=== PATIENT | male | born 1945 | race Two or more races ===

== ENCOUNTER 2022-12-15 20:48 | Inpatient (IN) | payer OTHER, MEDICAID ==
[~2022-12-15] VITALS: Ht 167.6 cm; Wt 69.3 kg
[2022-12-15] MEDS ORDERED: ASPirin-EC 81 mg tab PO ONE (21:15)
[2022-12-15] MEDS ORDERED: NITROGLYCERIN 2% OINT 1GM PKG TD ONE (21:15)
[2022-12-15 21:23] LABS: Basophils # (auto) 0 10 ^3/uL (0-0.2); Basophils % (auto) 0.3 % (0.0-2.0); Eosinophils # (auto) 0 10 ^3/uL (0-0.8); Eosinophils % (auto) 0.7 % (0.0-7.0); Hematocrit 37.1 % (41.0-53.0); Hemoglobin 12.1 g/dL (13.5-17.5); Lymphocytes # (auto) 2.5 10 ^3/uL (0.4-5.4); Lymphocytes % (auto) 51.3 % (10.0-50.0); Mean Corpuscular Hemoglobin 32.5 pg (28.0-32.0); Mean Corpuscular Hgb Conc. 32.6 g/dL (32.0-36.0); Mean Corpuscular Volume 99.6 fL (80.0-100.0); Monocytes # (auto) 0.5 10 ^3/uL (0-1.3); Monocytes % (auto) 10.5 % (0.0-12.0); Neutrophils # (auto) 1.8 10 ^3/uL (1.6-8.6); Neutrophils % (auto) 37.2 % (37.0-80.0); Nucleated Red Blood Cells % 0.1 %; Red Blood Cells 3.72 10^6/uL (4.5-5.90); Red Cell Distribution Width 14.5 % (11.8-14.3); White Blood Cell 4.8 10^3/uL (4.4-10.8)
[2022-12-15] MEDS ORDERED: NITROGLYCERIN 0.4 MG SL TAB SL ONE (21:23)
[2022-12-15 21:39] LABS: Alanine Aminotransferase 39 U/L (7-40); Albumin 4.2 g/dL (3.2-4.8); Alkaline Phosphatase 104 U/L (46-116); Anion Gap 7 (5-15); Aspartate Aminotransferase 44 U/L (13-40); BUN/Creatinine Ratio 24.2 (10.0-20.0); Blood Urea Nitrogen 24 mg/dL (9-23); Calcium 9.3 mg/dL (8.7-10.4); Carbon Dioxide 23 mmol/L (20-30); Chloride 110 mmol/L (98-107); Glucose 102 mg/dL (74-106); INR 1.11 (0.9-1.15); Lipase 68 U/L (12-53); Magnesium 2.1 mg/dL (1.6-2.6); Partial Thromboplastin Time 27.3 SEC (24.5-34.5); Potassium 4.2 mmol/L (3.5-5.1); Prothrombin Time 11.6 sec (9.3-11.8); Sodium 140 mmol/L (136-145)
[2022-12-15 21:40] LABS: Bilirubin, Total 0.8 mg/dL (0.2-1.0); Total Protein 7.4 g/dL (5.7-8.2)
[2022-12-15 21:44] VITALS: PULSE 41; RESP 16; O2SAT 98
[2022-12-15] MEDS ORDERED: SODIUM CHLORIDE 0.9% 1,000 ML IV ONE (23:00)
[2022-12-15 23:41] LABS: Urine Bacteria NONE SEEN /hpf (None Seen); Urine Blood Negative /uL (Negative); Urine Clarity Clear (Clear); Urine Color Yellow (Yellow); Urine Hyaline Cast FEW /lpf (0 - 2); Urine Protein, UAD TRACE (Negative); Urine Specific Gravity 1.027 (1.001-1.035); Urine Urobilinogen Normal (Negative); Urine WBC <1 /hpf (0 - 3)
[2022-12-16] VITALS (10 sets, daily range): BP systolic 138–152; BP diastolic 41–47; PULSE 31–83; RESP 13–25; TEMP 98–98.7; O2SAT 92–97
[2022-12-16] MEDS ORDERED: ONDANSETRON HCL 4 MG/2 ML VIAL IV PRN (03:30)
[2022-12-16] MEDS ORDERED: HYDROcodone-ACET 5/325MG TAB PO PRN (03:30)
[2022-12-16] MEDS ORDERED: DOCUSATE SOD 100 MG CAP PO PRN (03:30)
[2022-12-16] MEDS ORDERED: IBUPROFEN 600 MG TAB PO PRN (03:30)
[2022-12-16] MEDS ORDERED: NITROGLYCERIN 0.4 MG SL TAB SL PRN (05:45)
[2022-12-16] MEDS ORDERED: MORPHINE SULFATE INJ 2 MG/ml SYRG IV PRN (05:45)
[2022-12-16] MEDS: SODIUM CHLOR 0.9% PF (SALINE LOCK) 10ML VIAL/SYR IV SCH ×3 (06:05→22:00)
[2022-12-16 07:40] LABS: Basophils # (auto) 0 10 ^3/uL (0-0.2); Basophils % (auto) 0.1 % (0.0-2.0); Eosinophils # (auto) 0 10 ^3/uL (0-0.8); Eosinophils % (auto) 0.4 % (0.0-7.0); Hematocrit 35.3 % (41.0-53.0); Hemoglobin 11.7 g/dL (13.5-17.5); Lymphocytes # (auto) 1.5 10 ^3/uL (0.4-5.4); Lymphocytes % (auto) 31.6 % (10.0-50.0); Mean Corpuscular Hemoglobin 32.9 pg (28.0-32.0); Mean Corpuscular Hgb Conc. 33.1 g/dL (32.0-36.0); Mean Corpuscular Volume 99.4 fL (80.0-100.0); Monocytes # (auto) 0.4 10 ^3/uL (0-1.3); Neutrophils # (auto) 2.7 10 ^3/uL (1.6-8.6); Neutrophils % (auto) 58.9 % (37.0-80.0); Red Blood Cells 3.56 10^6/uL (4.5-5.90); Red Cell Distribution Width 14.4 % (11.8-14.3); White Blood Cell 4.6 10^3/uL (4.4-10.8)
[2022-12-16 07:44] LABS: Alanine Aminotransferase 34 U/L (7-40); Albumin 3.8 g/dL (3.2-4.8); Alkaline Phosphatase 85 U/L (46-116); Anion Gap 7 (5-15); Aspartate Aminotransferase 35 U/L (13-40); BUN/Creatinine Ratio 24.7 (10.0-20.0); Bilirubin, Total 1.5 mg/dL (0.2-1.0); Blood Urea Nitrogen 19 mg/dL (9-23); Calcium 8.7 mg/dL (8.7-10.4); Carbon Dioxide 24 mmol/L (20-30); Chloride 109 mmol/L (98-107); Glucose 84 mg/dL (74-106); Sodium 140 mmol/L (136-145); Total Protein 6.7 g/dL (5.7-8.2)
[2022-12-16] MEDS: ASPirin 81 mg TAB PO SCH (09:36)
[2022-12-16] MEDS ORDERED: hydrALAZINE HCL 20 MG/ML VL IV PRN (09:45)
[2022-12-16] MEDS: LISINOPRIL 5 MG TAB PO SCH (10:12)
[2022-12-16] MEDS: amLODIPine BESYLATE 5 MG TAB PO SCH (10:13)
[2022-12-16 10:24] LABS: LDL Cholesterol 68 mg/dL (< 100); Triglycerides 61 mg/dL (< 150)
[2022-12-16 10:25] LABS: Cholesterol 119 mg/dL (< 200); HDL Cholesterol 39 mg/dL (40-59)
[2022-12-16] MEDS ORDERED: ATROPINE SULF 1 MG/10ml SYR IV PRN ×2 (14:15→16:45)
[2022-12-16] MEDS: ATORVASTATIN 20 MG TAB PO SCH (21:43)
[2022-12-17] VITALS (17 sets, daily range): BP systolic 136–176; BP diastolic 38–61; PULSE 28–46; RESP 12–19; TEMP 97.5–98.8; O2SAT 91–100
[2022-12-17 04:57] LABS: Basophils # (auto) 0 10 ^3/uL (0-0.2); Basophils % (auto) 0.2 % (0.0-2.0); Eosinophils # (auto) 0 10 ^3/uL (0-0.8); Eosinophils % (auto) 0.4 % (0.0-7.0); Hematocrit 35.9 % (41.0-53.0); Hemoglobin 12.2 g/dL (13.5-17.5); Lymphocytes # (auto) 1.2 10 ^3/uL (0.4-5.4); Lymphocytes % (auto) 23.1 % (10.0-50.0); Mean Corpuscular Hemoglobin 33.4 pg (28.0-32.0); Mean Corpuscular Hgb Conc. 33.9 g/dL (32.0-36.0); Mean Corpuscular Volume 98.6 fL (80.0-100.0); Monocytes # (auto) 0.5 10 ^3/uL (0-1.3); Monocytes % (auto) 9.8 % (0.0-12.0); Neutrophils # (auto) 3.5 10 ^3/uL (1.6-8.6); Neutrophils % (auto) 66.5 % (37.0-80.0); Red Blood Cells 3.64 10^6/uL (4.5-5.90); Red Cell Distribution Width 14.8 % (11.8-14.3); White Blood Cell 5.3 10^3/uL (4.4-10.8)
[2022-12-17 05:27] LABS: Alanine Aminotransferase 27 U/L (7-40); Albumin 3.9 g/dL (3.2-4.8); Alkaline Phosphatase 86 U/L (46-116); Anion Gap 7 (5-15); Aspartate Aminotransferase 27 U/L (13-40); BUN/Creatinine Ratio 16.3 (10.0-20.0); Bilirubin, Total 1.9 mg/dL (0.2-1.0); Blood Urea Nitrogen 13 mg/dL (9-23); Calcium 9.2 mg/dL (8.7-10.4); Carbon Dioxide 25 mmol/L (20-30); Chloride 107 mmol/L (98-107); Glucose 97 mg/dL (74-106); Potassium 3.9 mmol/L (3.5-5.1); Sodium 139 mmol/L (136-145); Total Protein 6.9 g/dL (5.7-8.2)
[2022-12-17] MEDS: SODIUM CHLOR 0.9% PF (SALINE LOCK) 10ML VIAL/SYR IV SCH ×3 (06:18→21:39)
[2022-12-17] MEDS ORDERED: ATOR20TA PO (07:14)
[2022-12-17] MEDS ORDERED: TAMS-35 PO (07:14)
[2022-12-17] MEDS ORDERED: AMLO1TAB22 PO (07:14)
[2022-12-17] MEDS ORDERED: FINA5TAB4 PO (07:15)
[2022-12-17] MEDS ORDERED: CYA100I PO (07:15)
[2022-12-17] MEDS ORDERED: CHOL20007 OR (07:15)
[2022-12-17] MEDS: ASPirin 81 mg TAB PO SCH (08:08)
[2022-12-17] MEDS: LISINOPRIL 5 MG TAB PO SCH ×2 (08:09→10:57)
[2022-12-17] MEDS: amLODIPine BESYLATE 5 MG TAB PO SCH (08:09)
[2022-12-17] MEDS ORDERED: ATROPINE SULF 1 MG/10ml SYR IV PRN ×2 (09:30→10:00)
[2022-12-17] MEDS: FINASTERIDE 5 MG TAB PO SCH (10:00)
[2022-12-17] MEDS: NIFEdipine ER 30 MG TAB PO SCH (18:01)
[2022-12-17] MEDS: TAMSULOSIN HYDROCHLORIDE 0.4 MG CAP PO SCH (18:04)
[2022-12-17] MEDS: ATORVASTATIN 20 MG TAB PO SCH (21:39)
[2022-12-18] VITALS (26 sets, daily range): BP systolic 107–142; BP diastolic 21–99; PULSE 28–57; RESP 9–16; TEMP 97.6–98; O2SAT 85–99
[2022-12-18] MEDS: SODIUM CHLOR 0.9% PF (SALINE LOCK) 10ML VIAL/SYR IV SCH ×3 (05:43→21:06)
[2022-12-18 05:48] LABS: Basophils # (auto) 0 10 ^3/uL (0-0.2); Basophils % (auto) 0.3 % (0.0-2.0); Eosinophils # (auto) 0 10 ^3/uL (0-0.8); Eosinophils % (auto) 0.8 % (0.0-7.0); Hematocrit 36.1 % (41.0-53.0); Hemoglobin 12.3 g/dL (13.5-17.5); Lymphocytes # (auto) 1.5 10 ^3/uL (0.4-5.4); Lymphocytes % (auto) 27.8 % (10.0-50.0); Mean Corpuscular Hemoglobin 33.4 pg (28.0-32.0); Mean Corpuscular Hgb Conc. 34.2 g/dL (32.0-36.0); Mean Corpuscular Volume 97.9 fL (80.0-100.0); Monocytes # (auto) 0.7 10 ^3/uL (0-1.3); Monocytes % (auto) 12.7 % (0.0-12.0); Neutrophils # (auto) 3.1 10 ^3/uL (1.6-8.6); Neutrophils % (auto) 58.4 % (37.0-80.0); Red Blood Cells 3.69 10^6/uL (4.5-5.90); Red Cell Distribution Width 14.1 % (11.8-14.3); White Blood Cell 5.3 10^3/uL (4.4-10.8)
[2022-12-18 05:58] LABS: Anion Gap 7 (5-15); Carbon Dioxide 26 mmol/L (20-30); Chloride 107 mmol/L (98-107); Potassium 4.1 mmol/L (3.5-5.1); Sodium 140 mmol/L (136-145)
[2022-12-18 05:59] LABS: Calcium 9.3 mg/dL (8.5-10.1)
[2022-12-18 06:02] LABS: INR 1.12 (0.9-1.15); Partial Thromboplastin Time 29.2 SEC (24.5-34.5); Prothrombin Time 11.7 sec (9.3-11.8)
[2022-12-18 06:04] LABS: BUN/Creatinine Ratio 17.9 (10.0-20.0); Blood Urea Nitrogen 15 mg/dL (9-23); Glucose 91 mg/dL (74-106)
[2022-12-18] MEDS: ASPirin 81 mg TAB PO SCH (10:00)
[2022-12-18] MEDS: FINASTERIDE 5 MG TAB PO SCH (10:12)
[2022-12-18] MEDS: NIFEdipine ER 30 MG TAB PO SCH (10:13)
[2022-12-18] MEDS: LISINOPRIL 5 MG TAB PO SCH (10:13)
[2022-12-18] MEDS ORDERED: VERAPAMIL 2.5MG/ML INJ 2ML VIAL IV ONE (13:50)
[2022-12-18] MEDS ORDERED: ANGIOMAX 250 MG VIAL IV ONE ×2 (13:50→14:56)
[2022-12-18] MEDS ORDERED: HEPARIN SODIUM (PORCINE) 5000 UNITS/ML 1ML VIAL ONE (13:50)
[2022-12-18] MEDS ORDERED: SODIUM CHL 0.9% 50 ML ONE ×2 (13:51→14:56)
[2022-12-18] MEDS ORDERED: MIDAZOLAM HCL 2MG/2ML 2ml VIAL (1mg/ml) ONE (13:51)
[2022-12-18] MEDS ORDERED: fentaNYL CITRATE 100 MCG/2 ML VL ONE (13:51)
[2022-12-18] MEDS ORDERED: LIDOCAINE 2%HCL (LOCAL ANESTH.) INJ 20ML MDV ONE (13:52)
[2022-12-18] MEDS ORDERED: IODIXANOL 320MG/ML 100ML BTL IV ONE ×3 (14:23→15:49)
[2022-12-18] MEDS ORDERED: ATROPINE SULF 1 MG/10ml SYR ONE (14:50)
[2022-12-18] MEDS ORDERED: EPINEPHrine HCL 1 MG/10 ML SYRG ONE (14:50)
[2022-12-18] MEDS ORDERED: ASPirin 81 mg TAB ONE (15:52)
[2022-12-18] MEDS ORDERED: CLOPIDOGREL 300 MG TAB ONE (15:52)
[2022-12-18] MEDS: TAMSULOSIN HYDROCHLORIDE 0.4 MG CAP PO SCH (19:21)
[2022-12-18] MEDS: ATORVASTATIN 20 MG TAB PO SCH (21:06)
[2022-12-19] VITALS (31 sets, daily range): BP systolic 112–138; BP diastolic 35–68; PULSE 32–60; RESP 9–33; TEMP 97.5–98.4; O2SAT 88–99
[2022-12-19 05:19] LABS: Basophils # (auto) 0 10 ^3/uL (0-0.2); Basophils % (auto) 0.3 % (0.0-2.0); Eosinophils # (auto) 0 10 ^3/uL (0-0.8); Eosinophils % (auto) 0.7 % (0.0-7.0); Hematocrit 36.6 % (41.0-53.0); Hemoglobin 12.5 g/dL (13.5-17.5); Lymphocytes # (auto) 1.1 10 ^3/uL (0.4-5.4); Lymphocytes % (auto) 22.2 % (10.0-50.0); Mean Corpuscular Hemoglobin 33.4 pg (28.0-32.0); Mean Corpuscular Hgb Conc. 34.1 g/dL (32.0-36.0); Mean Corpuscular Volume 97.9 fL (80.0-100.0); Monocytes # (auto) 0.6 10 ^3/uL (0-1.3); Monocytes % (auto) 11.5 % (0.0-12.0); Neutrophils # (auto) 3.1 10 ^3/uL (1.6-8.6); Neutrophils % (auto) 65.3 % (37.0-80.0); Nucleated Red Blood Cells % 0.1 %; Red Blood Cells 3.73 10^6/uL (4.5-5.90); Red Cell Distribution Width 14.4 % (11.8-14.3); White Blood Cell 4.8 10^3/uL (4.4-10.8)
[2022-12-19 05:26] LABS: Anion Gap 7 (5-15); Carbon Dioxide 26 mmol/L (20-30); Chloride 107 mmol/L (98-107); Potassium 3.5 mmol/L (3.5-5.1); Sodium 140 mmol/L (136-145)
[2022-12-19 05:27] LABS: Calcium 9.1 mg/dL (8.7-10.4)
[2022-12-19 05:32] LABS: BUN/Creatinine Ratio 27.1 (10.0-20.0); Blood Urea Nitrogen 23 mg/dL (9-23); Glucose 116 mg/dL (74-106)
[2022-12-19] MEDS: SODIUM CHLOR 0.9% PF (SALINE LOCK) 10ML VIAL/SYR IV SCH ×3 (05:47→21:33)
[2022-12-19] MEDS: CLOPIDOGREL BISULFATE 75 MG TAB PO SCH (09:37)
[2022-12-19] MEDS: ASPirin 81 mg TAB PO SCH (09:37)
[2022-12-19] MEDS: NIFEdipine ER 30 MG TAB PO SCH ×2 (10:00→10:33)
[2022-12-19] MEDS: FINASTERIDE 5 MG TAB PO SCH (10:00)
[2022-12-19] MEDS: LISINOPRIL 5 MG TAB PO SCH (10:34)
[2022-12-19] MEDS ORDERED: LIDOCAINE 2%HCL (LOCAL ANESTH.) INJ 20ML MDV ONE (11:56)
[2022-12-19] MEDS ORDERED: SODIUM CHL 0.9% 0 ML ONE (12:20)
[2022-12-19] MEDS ORDERED: MIDAZOLAM HCL 2MG/2ML 2ml VIAL (1mg/ml) ONE (12:20)
[2022-12-19] MEDS ORDERED: VANCOMYCIN HCL 1000 MG VL ONE (12:20)
[2022-12-19] MEDS ORDERED: VANCOMYCIN 1GM/250ML 250 ML IV ONE (12:20)
[2022-12-19] MEDS ORDERED: fentaNYL CITRATE 100 MCG/2 ML VL ONE (12:20)
[2022-12-19] MEDS ORDERED: Surgicel PA 2X3 INCH TOP ONE (13:00)
[2022-12-19] MEDS ORDERED: IODIXANOL 320MG/ML 100ML BTL IV ONE (13:08)
[2022-12-19] MEDS: ACETAMINOPHEN 325 MG TAB PO PRN ×2 (15:01→19:06)
[2022-12-19] MEDS: TAMSULOSIN HYDROCHLORIDE 0.4 MG CAP PO SCH (17:37)
[2022-12-19] MEDS ORDERED: HYDROcodone-ACET 10/325MG TAB PO PRN (21:30)
[2022-12-19] MEDS: APIXABAN 2.5 MG TAB PO SCH (21:33)
[2022-12-19] MEDS: ATORVASTATIN 20 MG TAB PO SCH (21:33)
[2022-12-20] VITALS (15 sets, daily range): BP systolic 116–147; BP diastolic 56–94; PULSE 55–61; RESP 11–17; TEMP 97.4–98.3; O2SAT 92–98
[2022-12-20] MEDS: SODIUM CHLOR 0.9% PF (SALINE LOCK) 10ML VIAL/SYR IV SCH ×2 (05:00→14:14)
[2022-12-20 05:35] LABS: Basophils # (auto) 0 10 ^3/uL (0-0.2); Basophils % (auto) 0.3 % (0.0-2.0); Eosinophils # (auto) 0 10 ^3/uL (0-0.8); Eosinophils % (auto) 0.4 % (0.0-7.0); Hematocrit 38.5 % (41.0-53.0); Hemoglobin 13.4 g/dL (13.5-17.5); Lymphocytes # (auto) 1.1 10 ^3/uL (0.4-5.4); Lymphocytes % (auto) 25.1 % (10.0-50.0); Mean Corpuscular Hemoglobin 33.7 pg (28.0-32.0); Mean Corpuscular Hgb Conc. 34.8 g/dL (32.0-36.0); Mean Corpuscular Volume 96.8 fL (80.0-100.0); Monocytes # (auto) 0.6 10 ^3/uL (0-1.3); Monocytes % (auto) 14.2 % (0.0-12.0); Neutrophils # (auto) 2.6 10 ^3/uL (1.6-8.6); Nucleated Red Blood Cells % 0.1 %; Red Blood Cells 3.98 10^6/uL (4.5-5.90); White Blood Cell 4.3 10^3/uL (4.4-10.8)
[2022-12-20 05:49] LABS: Anion Gap 6 (5-15); Carbon Dioxide 27 mmol/L (20-30); Chloride 106 mmol/L (98-107); Potassium 3.6 mmol/L (3.5-5.1); Sodium 139 mmol/L (136-145)
[2022-12-20 05:50] LABS: Calcium 9.1 mg/dL (8.5-10.1)
[2022-12-20 05:55] LABS: BUN/Creatinine Ratio 20.7 (10.0-20.0); Blood Urea Nitrogen 17 mg/dL (9-23); Glucose 99 mg/dL (74-106)
[2022-12-20] MEDS: APIXABAN 2.5 MG TAB PO SCH (09:28)
[2022-12-20] MEDS: CLOPIDOGREL BISULFATE 75 MG TAB PO SCH (09:28)
[2022-12-20] MEDS: ASPirin 81 mg TAB PO SCH (09:28)
[2022-12-20] MEDS: FINASTERIDE 5 MG TAB PO SCH (09:29)
[2022-12-20] MEDS: LISINOPRIL 5 MG TAB PO SCH (09:29)
[2022-12-20] MEDS ORDERED: METOPROLOL TARTRATE 25 MG TAB PO SCH (10:00)
[2022-12-20] MEDS ORDERED: MET25T PO (10:04)
[2022-12-20] MEDS ORDERED: AML5T PO (10:04)
[2022-12-20] MEDS ORDERED: CLOP75TA70 PO (10:04)
[2022-12-20] MEDS ORDERED: APIX2.5T PO (10:04)
[2022-12-20] MEDS ORDERED: ATOR20TA50 PO (10:04)
[2022-12-20] MEDS ORDERED: ASPI-325 PO (10:04)
[2022-12-20] MEDS ORDERED: LISI-275 PO (10:04)
== END 2022-12-20 16:14 | disposition home or self-care (01) | DRG 243 ==
LOC: ER 20:48 → TELE 12-16 05:43 → DOU IN ICU 12-16 16:21
PROVIDERS: ADMIT Internal Medicine Pulmonary Disease; ATTEND Student in an Organized Health Care Education/Training Program
PROC: B211YZZ Fluoroscopy of Multiple Coronary Arteries using Other Contrast (ICD-10-PCS; principal; 2022-12-18)
PROC: 027035Z Dilation of Coronary Artery, One Artery with Two Drug-eluting Intraluminal Devices, Percutaneous Approach (ICD-10-PCS; 2022-12-18)
PROC: 4A023N7 Measurement of Cardiac Sampling and Pressure, Left Heart, Percutaneous Approach (ICD-10-PCS; 2022-12-18)
PROC: B215YZZ Fluoroscopy of Left Heart using Other Contrast (ICD-10-PCS; 2022-12-18)
PROC: 0JH606Z Insertion of Pacemaker, Dual Chamber into Chest Subcutaneous Tissue and Fascia, Open Approach (ICD-10-PCS; 2022-12-19)
PROC: 02H63JZ Insertion of Pacemaker Lead into Right Atrium, Percutaneous Approach (ICD-10-PCS; 2022-12-19)
PROC: 02HK3JZ Insertion of Pacemaker Lead into Right Ventricle, Percutaneous Approach (ICD-10-PCS; 2022-12-19)
PROC: B517YZZ Fluoroscopy of Left Subclavian Vein using Other Contrast (ICD-10-PCS; 2022-12-19)
DX: I25.10 Atherosclerotic heart disease of native coronary artery without angina pectoris (principal); I50.32 Chronic diastolic (congestive) heart failure; I16.0 Hypertensive urgency; E86.0 Dehydration; I10 Essential (primary) hypertension; I48.91 Unspecified atrial fibrillation; R00.1 Bradycardia, unspecified; E78.5 Hyperlipidemia, unspecified; N40.0 Benign prostatic hyperplasia without lower urinary tract symptoms; I25.82 Chronic total occlusion of coronary artery; R13.10 Dysphagia, unspecified; I36.1 Nonrheumatic tricuspid (valve) insufficiency; I27.20 Pulmonary hypertension, unspecified
CPT/HCPCS: 33208; 36415; 71045; 80048; 80053; 80061; 81001; 83036; 83690; 83735; 83880; 84484; 85025; 85610; 85730; 87081; 92943; 93005; 93306; 93458; 96360; 99152; 99153; 99291; G0378; J2250; Q9967

== ENCOUNTER 2022-12-23 19:48 | Emergency (ER) | payer OTHER, MEDICAID ==
[~2022-12-23] VITALS: Ht 170.2 cm; Wt 51.0 kg
[~2022-12-23 19:48] MED LIST: AML5T PO; APIX2.5T PO; ASPI-325 PO; ATOR20TA PO; ATOR20TA50 PO; CHOL20007 OR; CLOP75TA70 PO; CYA100I PO; FINA5TAB4 PO; LISI-275 PO; MET25T PO; TAMS-35 PO
[2022-12-23] MEDS ORDERED: cloNIDine 0.2 mg/24hr 7DAY PATCH TD ONE (21:00)
[2022-12-23 21:18] LABS: Basophils # (auto) 0 10 ^3/uL (0-0.2); Basophils % (auto) 0.2 % (0.0-2.0); Eosinophils # (auto) 0 10 ^3/uL (0-0.8); Eosinophils % (auto) 0.7 % (0.0-7.0); Hematocrit 39.5 % (41.0-53.0); Hemoglobin 13.3 g/dL (13.5-17.5); Lymphocytes # (auto) 1.7 10 ^3/uL (0.4-5.4); Lymphocytes % (auto) 34.1 % (10.0-50.0); Mean Corpuscular Hemoglobin 33.2 pg (28.0-32.0); Mean Corpuscular Hgb Conc. 33.7 g/dL (32.0-36.0); Mean Corpuscular Volume 98.5 fL (80.0-100.0); Monocytes # (auto) 0.6 10 ^3/uL (0-1.3); Monocytes % (auto) 11.5 % (0.0-12.0); Neutrophils # (auto) 2.7 10 ^3/uL (1.6-8.6); Neutrophils % (auto) 53.5 % (37.0-80.0); Red Blood Cells 4.01 10^6/uL (4.5-5.90); Red Cell Distribution Width 14.5 % (11.8-14.3)
[2022-12-23 21:32] LABS: Alanine Aminotransferase 47 U/L (7-40); Albumin 4.3 g/dL (3.2-4.8); Alkaline Phosphatase 108 U/L (46-116); Anion Gap 6 (5-15); Aspartate Aminotransferase 45 U/L (13-40); BUN/Creatinine Ratio 21.7 (10.0-20.0); Blood Urea Nitrogen 23 mg/dL (9-23); Calcium 9.2 mg/dL (8.5-10.1); Carbon Dioxide 25 mmol/L (20-30); Chloride 106 mmol/L (98-107); Glucose 138 mg/dL (74-106); Potassium 4.7 mmol/L (3.5-5.1); Sodium 137 mmol/L (136-145); Total Protein 7.6 g/dL (5.7-8.2)
[2022-12-24 00:30] VITALS: PULSE 60; RESP 18; O2SAT 98
[2022-12-24] MEDS ORDERED: METOPROLOL TARTRATE 1MG/1ML-5ML VIAL IV ONE (01:00)
[2022-12-24] MEDS ORDERED: ENOXAPARIN SOD 60 MG/0.6 ML SYRINGE SC ONE (01:00)
[2022-12-24] MEDS ORDERED: ASPirin 325 MG TAB PO ONE (01:00)
[2022-12-24] MEDS ORDERED: LACTATED RINGER'S 1,000 ML IV ONE (01:00)
[2022-12-24 03:57] LABS: COVID19 ANTIGEN SOFIA FIA NEGATIVE (NEGATIVE)
[2022-12-24 07:17] VITALS: BP 149/64; PULSE 60; RESP 15; TEMP 97.8; O2SAT 98
== END 2022-12-24 02:02 | disposition short-term general hospital (02) ==
LOC: ER 19:48
DX: I16.0 Hypertensive urgency (principal); I10 Essential (primary) hypertension; I21.4 Non-ST elevation (NSTEMI) myocardial infarction; R79.89 Other specified abnormal findings of blood chemistry; R07.0 Pain in throat; R42 Dizziness and giddiness; E78.5 Hyperlipidemia, unspecified; Z95.0 Presence of cardiac pacemaker; Z20.822 Contact with and (suspected) exposure to COVID-19
CPT/HCPCS: 36415; 70450; 71045; 80053; 84484; 85025; 87426; 93005; 96361; 96372; 96374; 99285; J1650

== ENCOUNTER 2024-07-07 21:28 | Inpatient (IN) | payer OTHER, MEDICAID ==
[~2024-07-07] VITALS: Ht 167.6 cm; Wt 63.6 kg
--- NOTE | 2024-07-07 21:53 | ED.PDOC ---
GI ASSESSMENT HPI Comments 79-year-old male with Prostate Cancer and Leukemia brought in by EMS presents with a chief complaint of abdominal pain x 1700 today. Patient states that his pain is localized to his LLQ, nonradiating, describes as sharp. Patient mentions that he receives blood transfusions every 4 weeks. Patients daughter mentions that patient is on Eliquis due to a DVT in his right leg. Patent is not undergoing chemotherapy at this time. Chief Complaint: Abdominal Pain Time Seen by MD: 21:48 Reviewed Notes: Medications, Allergies Allergies: Coded Allergies: NO KNOWN ALLERGIES (Unverified , 12/15/22) Home Meds Active Scripts Metoprolol Tartrate (Lopressor) 25 Mg Tb, 12.5 MG PO BID for 30 Days, #60 TAB Prov:HADLEY WHITE MD 12/20/22 Lisinopril (Lisinopril) 5 Mg Tab, 5 MG PO DAILY for 30 Days, #30 TAB Prov:HADLEY WHITE MD 12/20/22 Amlodipine Besylate (NORVASC TABLET) 5 Mg Tb, 5 MG PO DAILY for 30 Days, #30 TAB Prov:HADLEY WHITE MD 12/20/22 Clopidogrel Bisulfate (CLOPIDOGREL) 75 Mg Tab, 75 MG PO DAILY for 30 Days, #30 TAB Prov:HADLEY WHITE MD 12/20/22 Atorvastatin Calcium (ATORVASTATIN CALCIUM) 20 Mg Tab, 40 MG PO HS for 30 Days, #30 TAB Prov:HADLEY WHITE MD 12/20/22 Aspirin (Aspirin Low Dose) 81 Mg Tab, 81 MG PO DAILY for 30 Days, #30 TAB Prov:HADLEY WHITE MD 12/20/22 Apixaban Base (ELIQUIS) 2.5 Mg Tab, 2.5 MG PO BID for 30 Days, #60 TAB Prov:HADLEY WHITE MD 12/20/22 Reported Medications Vitamin B12 (Vitamin B-12) 1,000 Mcg/1 Ml Ij, 1000 MCG PO DAILY, INJ 12/17/22 Cholecalciferol (VITAMIN D3) 2,000 Unit Tab, 1000 UNIT OR DAILY, TAB 12/17/22 Finasteride (Finasteride) 5 Mg Tab, 5 MG PO DAILY for 30 Days, MG 12/17/22 Atorvastatin Calcium (Lipitor) 20 Mg Tab, 20 MG PO HS, TAB 12/17/22 Tamsulosin Hcl (Flomax) 0.4 Mg Cap, 0.4 MG PO HS, CAP 12/17/22 Information Source: Patient, Relative (Child), Emergency Med Personnel Mode of Arrival: EMS Timing: Days Duration: Since onset Prehospital treatment: Lens Hardener Quality: Sharp Vomitus: None Stool: Loose, Brown Severity: Moderate Recent: None Recent Hx of: None Pain Location: LLQ Vital Signs Vital Signs Date Time Temp Pulse Resp B/P (MAP) Pulse Ox O2 Delivery O2 Flow Rate FiO2 07/08/24 00:00 89 07/07/24 23:34 102.0 07/07/24 23:08 27 87 Room Air* 0 21 07/07/24 23:08 128/94 (105) Physical Exam General: Awake, alert and oriented. No acute distress. Skin: Skin in warm, dry and intact. Appropriate color for ethnicity. HEENT: The head is normocephalic and atraumatic. Conjunctivae are clear without exudates or hemorrhage. Sclera is non-icteric. EOM are intact. No signs of nystagmus. Eyelids are normal in appearance without swelling or lesions. Oral mucosa is pink and moist Neck: The neck is supple with normal range of motion. Positive JVD Cardiac: Heart rate and rhythm are normal. No murmurs, gallops, or rubs are auscultated. Respiratory: No signs of respiratory distress. Rales at bilateral bases. Abdominal: Abdomen is soft, positive suprapubic tenderness without distention. Bowel sounds are present and normoactive in all four quadrants. Extremities: Upper and lower extremities are atraumatic in appearance. Positive 2+ pitting edema bilaterally Neurological: The patient is awake, alert and oriented to person, place, and time with normal speech. Speech is clear. There is no facial asymmetry. Review of Systems: REVIEW OF SYSTEMS: Positive fever, positive chills, or fatigue HEENT: No sore throat, no earache, no congestion, no neck pain. Cardiac: No chest pain. No palpitations. Lungs: No shortness of breath, no cough. GI: Positive nausea, no vomiting, positive diarrhea, no constipation, no abdominal pain : No dysuria, frequency, or urgency. No hematuria. Musculoskeletal: No joint pain , no joint swelling, no extremity edema. Skin: No rash, no itching. Neuro: No headache, no dizziness, no weakness Past Medical History PAST MEDICAL HISTORY: AFIB, Cancer, High Lipids, HTN Surgical History: Pacemaker, PTCA Family History Family History: Family hx of heart fredo Social History Smoker: Non-Smoker Alcohol: Denies ETOH Use Drugs: Denies Drug Use Was a procedure done? Was a procedure done?: No GI differential Dx Differential Diagnosis: Other (Differential diagnoses considered include: A bdominal aortic aneurysm, PA, esophageal rupture, intestinal obstruction, mesenteric ischemia, perforated viscus or solid organ rupture, CHF with hepatomegaly, pneumonia, abscess, appendicitis, biliary disease, diverticulitis, gastritis, gastroenteritis, hepatitis, hernia, inflammatory bowel disease, pancreatitis, peptic ulcer disease, urinary tract infection, ureteral colic, constipation, GERD, irritable syndrome, abdominal wall pain, nonspecific abdominal pain, herpes zoster.) X-Ray, Labs, Meds, VS Vital Signs Date Time Temp Pulse Resp B/P (MAP) Pulse Ox O2 Delivery O2 Flow Rate FiO2 07/08/24 00:00 89 07/07/24 23:34 102.0 07/07/24 23:08 94 27 87 Room Air* 0 21 07/07/24 23:08 102.0 94 27 128/94 (105) 87 102.0 07/07/24 21:59 102.5 07/07/24 21:37 102.5 87 18 142/84 (103) 100 102.5 07/07/24 21:28 101 Lab Test 07/08/24 00:15 07/07/24 23:48 07/07/24 22:10 07/07/24 21:56 Range/Units Urine Color Dark-yellow Yellow Urine Clarity Clear Clear Urine pH 5.5 5.0-9.0 Urine Specific [place] 1.026 1.001-1.035 Urine Protein 1+ H Negative Urine Ketones Trace Negative Urine Blood 1+ H Negative /uL Urine Nitrite Negative Negative Urine Bilirubin Negative Negative Urine Urobilinogen Normal Negative mg/dL Urine Leukocyte Esterase Negative Negative /uL Urine RBC 6 0 - 3 /hpf Urine Microscopic WBC 4 H 0-3 /HPF Urine Squamous Epithelial Cells None seen <5 /hpf Urine Bacteria Few H None Seen /hpf Urine Hyaline Casts Few 0 - 2 /lpf Urine Mucus Few None Seen Urine Glucose Normal Normal mg/dL Lactic Acid Level 3.0 *H 4.6 *H 0.4-2.0 mmol/L Influenza Type A Antigen Negative Negative Influenza Type B Antigen Negative Negative SARS-CoV-2 Antigen (Rapid) Negative NEGATIVE White Blood Count 21.4 H 4.4-10.8 10^3/uL Red Blood Count 2.20 L 4.5-5.90 10^6/uL Hemoglobin 7.5 L 13.5-17.5 g/dL Hematocrit 22.4 L 41.0-53.0 % Mean Corpuscular Volume 101.6 H 80.0-100.0 fL Mean Corpuscular Hemoglobin 33.9 H 28.0-32.0 pg Mean Corpuscular Hemoglobin Concent 33.3 32.0-36.0 g/dL Red Cell Distribution Width 26.1 H 11.8-14.3 % Platelet Count 133 L 140-450 10^3/uL Mean Platelet Volume 8.4 6.9-10.8 fL Neutrophils (%) (Auto) 37.0-80.0 % Lymphocytes (%) (Auto) 10.0-50.0 % Monocytes (%) (Auto) 0.0-12.0 % Basophils (%) (Auto) 0.0-2.0 % Neutrophils # (Auto) 1.6-8.6 10 ^3/uL Lymphocytes # (Auto) 0.4-5.4 10 ^3/uL Monocytes # (Auto) 0-1.3 10 ^3/uL Differential Total Cells Counted 100.0 100 Neutrophils % (Manual) 34 L 37.0-80.0 Band Neutrophils % (Manual) 7 Lymphocytes % (Manual) 10 10.0-50.0 Monocytes % (Manual) 28 H 0-12 Eosinophils % (Manual) 0 0-7 Basophils % (Manual) 0 0.0-2.0 Metamyelocytes % (manual) 4 Myelocytes % (Manual) 0 Promyelocytes % (Manual) 2 Blast Cells % (Manual) 15 Nucleated Red Blood Cells 2.0 % Reactive Lymphocytes 0 Platelet Estimate Decreased Polychromasia Slight Anisocytosis (manual) Moderate Macrocytosis Slight Tear Drop Cells Few Sodium Level 134 L 136-145 mmol/L Potassium Level 4.5 3.5-5.1 mmol/L Chloride Level 104 98-107 mmol/L Carbon Dioxide Level 21 20-31 mmol/L Anion Gap 9 5-15 Blood Urea Nitrogen 11 9-23 mg/dL Creatinine 0.89 0.700-1.30 mg/dL Glomerular Filtration Rate Calc 87 >90 mL/min BUN/Creatinine Ratio 12.4 10.0-20.0 Serum Glucose 173 H 74-106 mg/dL Calcium Level 8.8 8.7-10.4 mg/dL Total Bilirubin 1.5 H 0.2-1.0 mg/dL Aspartate Amino Transferase (AST) 31 13-40 U/L Alanine Aminotransferase (ALT) 15 7-40 U/L Alkaline Phosphatase 256 H 46-116 U/L Total Protein 7.6 5.7-8.2 g/dL Albumin 3.5 3.2-4.8 g/dL Lipase 34 12-53 U/L Current Medications Medications (Trade) Dose Ordered Sig/Darrion Route Start Time Stop Time Status Last Admin Sodium Chloride 1,000 ml @ 1,000 mls/hr Q1H ONCE IV 07/07/24 21:45 07/07/24 22:44 DC 07/07/24 21:58 Acetaminophen (Tylenol Tablet) 650 mg ONCE ONCE PO 07/07/24 22:00 07/07/24 22:01 DC 07/07/24 21:59 Vancomycin HCl 250 ml @ 250 mls/hr ONCE ONCE IV 07/07/24 23:00 07/07/24 23:59 DC 07/07/24 23:33 Ceftriaxone Sodium 50 ml @ 100 mls/hr ONCE ONCE IV 07/07/24 23:00 07/07/24 23:29 DC 07/07/24 23:21 Sodium Chloride 1,000 ml @ 130 mls/hr Q7H42M ONCE IV 07/07/24 23:00 07/08/24 06:41 07/07/24 23:32 Time of 1ST Reevaluation: 22:20 Reevaluation 1ST: Unchanged Patient Education/Counseling: Need For Follow Up Family Education/Counseling: Need For Follow Up Departure 1 Departure Time of Disposition: 00:56 Impression: Primary Impression: Sepsis Additional Impressions: Abdominal pain Pneumonia Frequent PVCs Hypotension Disposition: ADMITTED INPATIENT Condition: Serious Comments 79-year-old male with abdominal pain and sepsis. Antibiotics and gentle IV fluids initiated in the emergency department. Levophed initiated for hypotension. Case discussed with [place] physician Dr. Mcgovern. Authorization for admission at this facility # [id number] Patient admitted to hospitalist service for further treatment, evaluation and monitoring. Extensive evaluation was performed in attempt to identify or rule out: (See differential diagnosis section) The following tests were ordered, and results were reviewed by me and discussed with patient: (See diagnostic results section) The following test were independently interpreted by me: EKG I reviewed and agreed with the following test results read by other providers: N/A I reviewed the following notes from the pt's past medical encounters: N/A Additional information was gathered from interviewing the following independent historians: Patient's daughter at bedside Discussion of management or test interpretation with external physician/other qualified health pharmacy customer care specialist: N/A Addressed an acute or chronic illness that poses a threat to life or bodily function: Sepsis, hypotension, pneumonia Decision regarding hospitalization or escalation of hospital level of care: Risk and benefits of admission for further treatment of patient's condition was considered. Due to patient's current clinical condition, high risk of decline and poor outcome if discharged and need for further inpatient management and monitoring, patient will be admitted to the hospital. Drug therapy requiring intensive monitoring for toxicity: IV Levophed Parenteral controlled substances: N/A Decision regarding elective major surgery with identified patient or procedure risk factors: N/A Decision regarding emergency major surgery: N/A Decision not to resuscitate or to de-escalate care because of poor prognosis: N/A Diagnosis or treatment significantly limited by social determinants of health: N/A Critical Care Note Critical Care Time?: Yes (35 min-critical care time only) Critical care comment: Due to a high probability of clinically significant, life threatening deterioration, the patient required my highest level of preparedness to intervene emergently and I personally spent this critical care time directly and personally managing the patient. This critical care time included obtaining a history; examining the patient; pulse oximetry; ordering and review of studies; arranging urgent treatment with development of a management plan; evaluation of patient's response to treatment; frequent reassessment; and, discussions with other providers. This critical care time was performed to assess and manage the high probability of imminent, life-threatening deterioration that could result in multi-organ failure. It was exclusive of separately billable procedures and treating other patients and teaching time. Please see my other sections and the rest of the note for further information on patient assessment and treatment. Stability Stability form required: No Heart Score Heart Score: Heart Score Response (Comments) Value History N/A 0 EKG N/A 0 Age N/A 0 Risk Factors N/A 0 Troponin N/A 0 Total 0 I personally scribed for BRIANNA MUNIZ MD ([email or web address]) on 07/07/24 at 21:53. Electronically submitted by Yayo Pike ([email or web address]). BRIANNA MUNIZ MD July 07, 2024 21:53
[2024-07-07] MEDS: SODIUM CHLORIDE 0.9% 1,000 ML IV ONE ×2 (21:58→23:32)
[2024-07-07] MEDS: ACETAMINOPHEN 325 MG TAB PO ONE (21:59)
[2024-07-07 22:20] LABS: Hematocrit 22.4 % (41.0-53.0); Hemoglobin 7.5 g/dL (13.5-17.5); Mean Corpuscular Hemoglobin 33.9 pg (28.0-32.0); Mean Corpuscular Hgb Conc. 33.3 g/dL (32.0-36.0); Mean Corpuscular Volume 101.6 fL (80.0-100.0); Platelet Count (auto) 133 10^3/uL (140-450); White Blood Cell 21.4 10^3/uL (4.4-10.8)
[2024-07-07 22:21] LABS: Red Cell Distribution Width 26.1 % (11.8-14.3)
[2024-07-07 22:22] LABS: Basophils % (manual) 0 (0.0-2.0); Eosinophils % (manual) 0 (0-7); Myelocytes % 0; Reactive Lymphocytes 0
[2024-07-07 22:27] LABS: Alanine Aminotransferase 15 U/L (7-40); Albumin 3.5 g/dL (3.2-4.8); Anion Gap 9 (5-15); Aspartate Aminotransferase 31 U/L (13-40); BUN/Creatinine Ratio 12.4 (10.0-20.0); Blood Urea Nitrogen 11 mg/dL (9-23); Calcium 8.8 mg/dL (8.7-10.4); Carbon Dioxide 21 mmol/L (20-31); Chloride 104 mmol/L (98-107); Lipase 34 U/L (12-53); Potassium 4.5 mmol/L (3.5-5.1); Total Protein 7.6 g/dL (5.7-8.2)
--- NOTE | 2024-07-07 22:27 | DVH ---
CHEST RADIOGRAPH Indication: Suspected Sepsis Technique: Single frontal view of the chest was obtained Comparison: XY CHEST XRAY 1 VIEW on DOS: 12/23/22, XY CHEST PORTABLE on DOS: 12/19/22, XY CHEST ILAN BLE on DOS: 12/15/22 FINDINGS: Lines and Tubes: Dual-chamber pacemaker impella Butch with pulse generator over the left chest Lungs: Airspace disease or less atelectasis in the right base Pleura: No effusion. No pneumothorax. Cardiomediastinal contours: Unremarkable Bones: No acute osseous abnormality. IMPRESSION: 1. Airspace disease or atelectasis in right base
[2024-07-07 22:35] LABS: Alkaline Phosphatase 256 U/L (46-116); Bilirubin, Total 1.5 mg/dL (0.2-1.0); Glucose 173 mg/dL (74-106); Sodium 134 mmol/L (136-145)
[2024-07-07 22:37] LABS: Lactic Acid w/Reflex 4.6 mmol/L (0.4-2.0)
[2024-07-07 22:46] LABS: COVID19 ANTIGEN SOFIA FIA NEGATIVE (NEGATIVE); Rapid Influenza A Negative (Negative); Rapid Influenza B Negative (Negative)
[2024-07-07 23:08] VITALS: PULSE 94; RESP 27; O2SAT 87
[2024-07-07] MEDS: cefTRIAXone 1GM/50ML D5W 50 ML IV ONE (23:21)
[2024-07-07] MEDS: VANCOMYCIN 1GM/200ML PM 250 ML IV ONE (23:33)
[2024-07-07 23:37] LABS: Band Neutrophils % (manual) 7; Lymphocytes % (manual) 10 (10.0-50.0)
[2024-07-07 23:38] LABS: Metamyelocytes % 4; Monocytes % (manual) 28 (0-12); Promyelocytes % 2
[2024-07-07 23:39] LABS: Anisocytosis Moderate; Platelet Estimate Decreased
[2024-07-07 23:40] LABS: Macrocytosis Slight; Polychromasia Slight; Tear Drop Cells FEW
[2024-07-07 23:42] LABS: Blast Cells 15
[2024-07-08] VITALS (69 sets, daily range): BP systolic 96–141; BP diastolic 3–90; PULSE 59–106; RESP 12–31; TEMP 97–99; O2SAT 79–99
[2024-07-08 00:38] LABS: Urine Bacteria FEW /hpf (None Seen); Urine Blood 1+ /uL (Negative); Urine Clarity Clear (Clear); Urine Color Dark-Yellow (Yellow); Urine Hyaline Cast FEW /lpf (0 - 2); Urine Mucus FEW (None Seen); Urine Protein, UAD 1+ (Negative); Urine Specific Gravity 1.026 (1.001-1.035); Urine Squamous Epithelial Cell None Seen /hpf (<5); Urine Urobilinogen Normal (Negative); Urine WBC 4 /HPF (0-3); Urine pH 5.5 (5.0-9.0)
[2024-07-08] MEDS: IOHEXOL 300 MG/ML 100ML BOTTLE IJ ONE (00:45)
--- NOTE | 2024-07-08 00:52 | DVH ---
Exam: CT CT AB PEL WITH IV CON ONLY History: Abdominal pain, fever, leukocytosis Comparison Study: None Technique: Multidetector spiral CT of the abdomen was performed from lung bases to pubic symphysis. Imaging was performed without IV contrast. Axial, coronal and sagittal multiplanar reformats were ob tained from the axial data set by the technologist. Radiation Dose : 1. Abdomen/Pelvis: CTDIvol 11.36 mGy, DLP 646.4 mGy*cm. Findings: Evaluation of solid organs is limited due to lack of intravenous contrast use. Lung Bases: There is airspace consolidation in the right lower lobe consistent with pneumonia. No ple ural or pericardial effusion. Moderate cardiomegaly. Coronary artery calcifications. Pacemaker noted. Liver: Liver is normal in size. No focal lesions noted. Gallbladder and Biliary Tree: No abnormality demonstrated. Spleen: No abnormality demonstrated. Pancreas: No abnormality demonstrated. Adrenal Glands: No abnormality demonstrated. Kidneys: No abnormality demonstrated. Bladder: Non distended. Bowel: Stomach appears grossly unremarkable. No abnormally dilated or thick-walled loops of large or small bowel noted. Appendix appears unremarkable. Ascites: Absent Lymphadenopathy: No evidence of lymphadenopathy. Abdominal Wall and Mesentery: Fat containing bilateral inguinal hernias larger on the left side. Vasculature: Considerable calcific atherosclerotic changes in abdominal aorta and iliac arteries. Pelvic Organs: Unremarkable Musculoskeletal: Innumerable small sclerotic lesions noted diffusely throughout the visualized skelet on consistent with metastases most likely from prostate cancer. No evidence of fracture. IMPRESSION: No acute abdominal or pelvic findings. Right lower lobe pneumonia. Diffuse sclerotic metastases. Radiation optimization: All CT scans at this facility use at least one of these dose optimization theo hniques: automated exposure control mA and/or kV adjustment per patient size (includes targeted exam s where dose is matched to clinical indication) or iterative reconstruction.
[2024-07-08] MEDS ORDERED: NITROGLYCERIN 0.4 MG SL TAB SL PRN (01:15)
--- NOTE | 2024-07-08 02:02 | DVHHP2 ---
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 Patient is Telugu speaking and history was taken mainly from patient's daughter Kate Davies- [phone]. As per daughter patient started having upper abdominal pain around 9:00 p.m. last night, initially 10/10, constant pain, sharp in nature aggravated with the food, no relieving factor. Patient also endorsed nausea but no vomiting. Past daughter patient also had diarrhea no blood in the morning because she he was taking stool softener. Patient also has chronic bilateral leg swelling for which he takes Lasix. As per daughter patient also gets blood transfusion as needed usually every 4 weeks after checking blood workup. After coming to the hospital patient also endorsed fever up to 102 F. Denied any chest pain no shortness a breath, acute joint p ain or swelling. Initial lab workup revealed leukocytosis with WBC 21.4, severe anemia with a hemoglobin 7.5, MCV 100.6, RDW 26.1, thrombocytopenia with platelet 133, neutrophil 34, mild hyponatremia with a sodium 134, lactic acidosis with lactic acid 4.6, serum bilirubin 1.5, alkaline phosphatase 256, lipase with a normal limit 34. Tested negative for COVID-19 or influenza type A or B. urinalysis not significant for UTI. CXR revealed airspace disease or atelectasis in the right base. CT abdomen revealed right lower lobe pneumonia, diffuse sclerotic metastasis,There is airspace consolidation in the right lower lobe consistent with pneumonia. No pleural or pericardial effusion. Moderate cardiomegaly. Coronary artery calcifications.Fat containing bilateral inguinal hernias larger on the left side.Innumerable small sclerotic lesions noted diffusely throughout the visualized skeleton consistent with metastases most likely from prostate cancer.Considerable calcific atherosclerotic changes in abdominal aorta and iliac arteries. During the course of hospitalization patient's hemoglobin dropped to 6.7[place] [address], ordered 1 unit of blood transfusion. As per daughter patient is on comfort care. Initially patient and family side No IV antibiotic, they agreed for IV antibiotic, acute blood thinner as patient is already on Eliquis at home, DNR DNI, antonio for blood transfusion or IV fluid with other comfort measure. PCP-Jakob Poole- [facility] oncologist-Jenise [facility] Echo on 12/16/22- LVEF 65%, RVSP 50 mm of mercury, [id number] mitral insufficiency, moderate TR. 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 daily, Lasix 20 mg daily, metoprolol PRN, amlodipine PRN, lisinopril p.r.n., olanzapine for sleep Allergy- NKDA Review of Systems Review of Systems Patient was seen today at the bedside. Cardiovascular- deny acute chest pain or shortness of breath or cough or palpitation Musculoskeletal-denies acute joint swelling or tenderness or redness Neurological- denies acute dysarthria, dysphagia, change in vision Psychiatry- denies depression or SI or HI Skin- denies acute rash or purpura Allergies: Coded Allergies: NO KNOWN ALLERGIES (Unverified , 12/15/22) Medications Current Medications Medications Dose Ordered Sig/Darrion Route Start Time Stop Time Status Last Admin Dose Admin Sodium Chloride 10 ml Q8HR IV 07/08/24 06:00 Ondansetron HCl 4 mg Q4HP PRN IV 07/08/24 01:15 Nitroglycerin 0.4 mg Q5MINP PRN SL 07/08/24 01:15 Morphine Sulfate 2 mg Q30M PRN IV 07/08/24 01:15 Exam Vital Signs Vital Signs Date Time Temp Pulse Resp B/P (MAP) Pulse Ox O2 Delivery O2 Flow Rate FiO2 07/08/24 01:12 98.9 75 24 98/45 (62) 96 98.9 07/07/24 23:08 Room Air* 0 21 Exam General examination- awake, alert, HEENT- PEERLA, no acute nasal discharge Cardiovascular- S1-S2 audible, rate and rhythm regular, no murmur Respiratory- CTAB, no wheeze or rhonchi Gastrointestinal-epigastric tenderness++, bowel sound+. Nondistended Musculoskeletal-no acute joint swelling or tenderness or redness Lower extremity- bilateral leg edema++ Neurological- cranial nerves intact, no acute dysarthria or dysphagia Psychiatry- denies depression or SI or HI Skin- no acute rash or purpura Labs/Xrays Labs Test 07/08/24 00:15 07/07/24 23:48 07/07/24 22:10 07/07/24 21:56 Range/Units Urine Color Dark-yellow Yellow Urine Clarity Clear Clear Urine pH 5.5 5.0-9.0 Urine Specific [place] 1.026 1.001-1.035 Urine Protein 1+ H Negative Urine Ketones Trace Negative Urine Blood 1+ H Negative /uL Urine Nitrite Negative Negative Urine Bilirubin Negative Negative Urine Urobilinogen Normal Negative mg/dL Urine Leukocyte Esterase Negative Negative /uL Urine RBC 6 0 - 3 /hpf Urine Microscopic WBC 4 H 0-3 /HPF Urine Squamous Epithelial Cells None seen <5 /hpf Urine Bacteria Few H None Seen /hpf Urine Hyaline Casts Few 0 - 2 /lpf Urine Mucus Few None Seen Urine Glucose Normal Normal mg/dL Lactic Acid Level 3.0 *H 0.4-2.0 mmol/L Influenza Type A Antigen Negative Negative Influenza Type B Antigen Negative Negative SARS-CoV-2 Antigen (Rapid) Negative NEGATIVE White Blood Count 21.4 H 4.4-10.8 10^3/uL Red Blood Count 2.20 L 4.5-5.90 10^6/uL Hemoglobin 7.5 L 13.5-17.5 g/dL Hematocrit 22.4 L 41.0-53.0 % Mean Corpuscular Volume 101.6 H 80.0-100.0 fL Mean Corpuscular Hemoglobin 33.9 H 28.0-32.0 pg Mean Corpuscular Hemoglobin Concent 33.3 32.0-36.0 g/dL Red Cell Distribution Width 26.1 H 11.8-14.3 % Platelet Count 133 L 140-450 10^3/uL Mean Platelet Volume 8.4 6.9-10.8 fL Neutrophils (%) (Auto) 37.0-80.0 % Lymphocytes (%) (Auto) 10.0-50.0 % Monocytes (%) (Auto) 0.0-12.0 % Basophils (%) (Auto) 0.0-2.0 % Neutrophils # (Auto) 1.6-8.6 10 ^3/uL Lymphocytes # (Auto) 0.4-5.4 10 ^3/uL Monocytes # (Auto) 0-1.3 10 ^3/uL Differential Total Cells Counted 100.0 100 Neutrophils % (Manual) 34 L 37.0-80.0 Band Neutrophils % (Manual) 7 Lymphocytes % (Manual) 10 10.0-50.0 Monocytes % (Manual) 28 H 0-12 Eosinophils % (Manual) 0 0-7 Basophils % (Manual) 0 0.0-2.0 Metamyelocytes % (manual) 4 Myelocytes % (Manual) 0 Promyelocytes % (Manual) 2 Blast Cells % (Manual) 15 Nucleated Red Blood Cells 2.0 % Reactive Lymphocytes 0 Platelet Estimate Decreased Polychromasia Slight Anisocytosis (manual) Moderate Macrocytosis Slight Tear Drop Cells Few Sodium Level 134 L 136-145 mmol/L Potassium Level 4.5 3.5-5.1 mmol/L Chloride Level 104 98-107 mmol/L Carbon Dioxide Level 21 20-31 mmol/L Anion Gap 9 5-15 Blood Urea Nitrogen 11 9-23 mg/dL Creatinine 0.89 0.700-1.30 mg/dL Glomerular Filtration Rate Calc 87 >90 mL/min BUN/Creatinine Ratio 12.4 10.0-20.0 Serum Glucose 173 H 74-106 mg/dL Calcium Level 8.8 8.7-10.4 mg/dL Total Bilirubin 1.5 H 0.2-1.0 mg/dL Aspartate Amino Transferase (AST) 31 13-40 U/L Alanine Aminotransferase (ALT) 15 7-40 U/L Alkaline Phosphatase 256 H 46-116 U/L Total Protein 7.6 5.7-8.2 g/dL Albumin 3.5 3.2-4.8 g/dL Lipase 34 12-53 U/L Assessment/Plan Assessment/Plan Assessment and plan Septic shock likely due to pneumonia Acute pneumonia Gram-positive versus Gram-negative Acute intractable abdominal pain with nausea likely due to pancre atitis/gastroenteritis likely infectious cause Prostate carcinoma with metastasis abdomen, chest, bony metastases Diffuse metastatic carcinoma likely from metastasis of prostate carcinoma DVT -right lower extremity-diagnosed 2 weeks Acute myeloid leukemia Lactic acidosis likely due to sepsis Pancytopenia Severe anemia-ordered 1 unit of blood transfusion Leukocytosis Thrombocytopenia Bilateral inguinal hernia History of pacemaker placement due to symptomatic bradycardia, junctional escape with the atrial stand still CAD, status post PCI to RCA x2, AFib Initial lab workup revealed leukocytosis with WBC 21.4, severe anemia with a hemoglobin 7.5, MCV 100.6, RDW 26.1, thrombocytopenia with platelet 133, neutrophil 34, mild hyponatremia with a sodium 134, lactic acidosis with lactic acid 4.6, serum bilirubin 1.5, alkaline phosphatase 256, lipase with a normal limit 34. Tested negative for COVID-19 or influenza type A or B. urinalysis not significant for UTI. CXR revealed airspace disease or atelectasis in the right base. CT abdomen revealed right lower lobe pneumonia, diffuse sclerotic metastasis,There is airspace consolidation in the right lower lobe consistent with pneumonia. No pleural or pericardial effusion. Moderate cardiomegaly. Coronary artery calcifications.Fat containing bilateral inguinal hernias larger on the left side.Innumerable small sclerotic lesions noted diffusely throughout the visualized skeleton consistent with metastases most likely from prostate cancer.Considerable calcific atherosclerotic changes in abdominal aorta and ron ac arteries. Plan Continue cefepime and vancomycin as prescribed Continue IV fluid as prescribed Continue pain medicine as prescribed Continue pantoprazole as prescribed Tamsulosin 0.4 mg p.o. daily Hydralazine p.r.n. as prescribed Atorvastatin 40 mg p.o. q.h.s. continue Levophed as titrated dose Pending blood culture, urine culture, sputum culture, MRSA screening Goals of care, Code status ; discussed with >15 minutes PCP-Jakob Poole- [place] [facility] oncologist-Jenise [facility] PUD prophylaxis: Pantoprazole DVT prophylaxis: SCD Plan discussed with Dr. Tomas , nursing staff, Total time spent on patient evaluation, chart review, assessment and plan, discussion discussion >35 minutes Plan discussed with: Patient, Daughter, Other (RN) My Orders Orders - CECILY GRACIA RESIDENT Procedure Category Date Status Time Admit ADMIT 07/08/24 Transmitted 01:11 Sodium Chloride Lock PHA 07/08/24 In Process (Saline Lock Ns) 06:00 Ondansetron Hcl PHA 07/08/24 In Process (Zofran) 01:15 Complete Blood Count LAB 07/09/24 Verified 04:00 Comprehensive LAB 07/09/24 Verified Metabolic Panel 04:00 Npo (Nothing By DIET 07/08/24 Transmitted Mouth) Diet Breakfast Nitroglycerin PHA 07/08/24 In Process Sublingual (Ntrostat 01:15 Morphine Sulfate PHA 07/08/24 In Process Injection 01:15 Oxygen By Nasal RT 07/08/24 Transmitted Cannula 01:11 Stat Ekg For Chest DOMINIQUE 07/08/24 In Process Pain 01:11 Notify Md Of Changes [facility] 07/08/24 In Process From Base 01:11 Director Of Solutions Architecture For [facility] 07/08/24 In Process 24 Hours 01:11 Emergency Dysrhythmia [facility] 07/08/24 In Process Protocol 01:11 Rhythm Strips Once [facility] 07/08/24 In Process Every Shift 01:11 Respiratory Culture TONE 07/08/24 Logged W/ Gs 01:13 Urine Bacterial TONE 07/08/24 Logged Culture 01:13 Code Status CODE 07/08/24 Transmitted 01:23 Date of Service: July 08, 2024 Billing Provider: ERUM TOMAS MD Common Visit Codes: 07165-RAOLPZX INP/OBS CARE (HIGH) Secondary Visit Codes: 91588-[id number] CARE PLAN 30 MINUTES CECILY GRACIA RESIDENT July 08, 2024 02:02
[2024-07-08] MEDS ORDERED: MORPHINE SULFATE INJ 2 MG/ml SYRG IV PRN (02:15)
[2024-07-08] MEDS ORDERED: ENOXAPARIN SOD 40 MG/0.4 ML SYRINGE SC ONE (02:15)
[2024-07-08] MEDS ORDERED: hydrALAZINE HCL 20 MG/ML VL IV PRN (02:15)
[2024-07-08] MEDS: NOREPINEPHRINE 8 MG/250ML KIT 250 ML IV SCH (02:39)
[2024-07-08] MEDS: SODIUM CHLORIDE 0.9% 1,000 ML IV ONE ×3 (03:00→10:30)
[2024-07-08] MEDS ORDERED: VANCOMYCIN PER PHARMACY 0 MG IV SCH (03:00)
[2024-07-08] MEDS ORDERED: HEPARIN DRIP/D5W 100UNITS/ML 250 ML IV SCH ×3 (03:00→07:00)
[2024-07-08] MEDS ORDERED: HEPARIN SODIUM (PORCINE) 5000 UNITS/ML 1ML VIAL IV ONE (03:00)
[2024-07-08 03:10] LABS: Red Blood Cells 2.07 10^6/uL (4.5-5.90); Red Cell Distribution Width 26.5 % (11.8-14.3)
[2024-07-08 03:12] LABS: Hematocrit 21.2 % (41.0-53.0); Mean Corpuscular Hemoglobin 32.6 pg (28.0-32.0); Mean Corpuscular Hgb Conc. 31.8 g/dL (32.0-36.0); Mean Corpuscular Volume 102.3 fL (80.0-100.0); Platelet Count (auto) 122 10^3/uL (140-450)
[2024-07-08 03:18] LABS: Hemoglobin 6.7 g/dL (13.5-17.5)
[2024-07-08 03:20] LABS: Basophils % (manual) 0 (0.0-2.0); Eosinophils % (manual) 0 (0-7); Metamyelocytes % 0; Reactive Lymphocytes 0
[2024-07-08 03:38] LABS: INR 1.82 (0.9-1.15); Partial Thromboplastin Time 38.4 SEC (24.5-34.5); Prothrombin Time 18.2 sec (9.3-11.8)
[2024-07-08 03:59] LABS: Anisocytosis Moderate; Band Neutrophils % (manual) 3; Blast Cells 4; Lymphocytes % (manual) 16 (10.0-50.0); Monocytes % (manual) 26 (0-12); Myelocytes % 8; Promyelocytes % 2
[2024-07-08 04:00] LABS: Macrocytosis Slight; Platelet Estimate Decreased; Polychromasia Slight; Tear Drop Cells FEW
[2024-07-08] MEDS: PANTOPRAZOLE 40 MG/10 ML VIAL INJ IV ONE (04:05)
[2024-07-08] MEDS: TAMSULOSIN HYDROCHLORIDE 0.4 MG CAP PO ONE (04:05)
[2024-07-08] MEDS: FUROSEMIDE 40 MG TAB PO ONE (04:06)
[2024-07-08] MEDS: CEFEPIME 1GM/ 50ML 50 ML IV ONE (04:39)
[2024-07-08] MEDS: SODIUM CHLOR 0.9% PF (SALINE LOCK) 10ML VIAL/SYR IV SCH (06:07)
--- NOTE | 2024-07-08 06:57 | ECG ---
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
--- NOTE | 2024-07-08 07:09 | ED.PDOC ---
Was a procedure done? 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: Attending Physician Indication: Hypotension Room prepared for procedure: Yes Security And Compliance Analyst performed hand hygien: Yes Maximal sterile barrier precau: Mask/Eye shield, Sterile gown, Cap, Sterlie gloves, Large sterlie drape Skin Preparation: Chlorhexidine gluconate Skin preparation completely dr: Yes Insertion site: Right, Femoral Central line catheter type: Zrl-hdauzzck-nry dialysis Number of lumens: 3 Central line exchanged over a: Yes Antiseptic ointment applied to: Yes Post Assessment: Proper placement Informed consent obtained: Yes Risks/benefits/alt described: Yes Notes Assisted by SB Yanez MD July 08, 2024 07:09
--- NOTE | 2024-07-08 07:57 | DVHPNRES ---
Progress Note Date Seen: July 08, 2024 Resident Creating Document: ASHLEY ACOSTA RESIDENT Medical Necessity Reason Pt with a Central, PICC or Fol: Yes The following are medically ne: Central Line Subjective Review of Systems Geraldo Rosenberg this is a 79-year-old male patient who presents to ED with chief complaint of progressive dyspnea from functional class II to functional class IV for the past three days before his admission associated with generalized weakness, generalized shakiness, nausea, dry heaves, constipation tenesmus and unintentional weight loss (approximately 15 lb in the last six months). Patient has diagnosis of leukemia and prostate cancer with metastases to bone who has decided no chemotherapy was reduced, goals of care we are modified DNR/DNI (yes to ACLS/vasopressor medication and noninvasive ventilation, no to chest compressions, defibrillation and intubation). Denies palpitation, syncope, chest pain, vomiting, diarrhea, bleeding, dysuria, sick contacts, recent travel and motor or sensory deficits. Past medical history: Hypertension, dyslipidemia, diagnosis in October 2023 of AML and prostate cancer with bone metastases patient decided no chemotherapy (patient follows oncologist in [place], Dr. 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 Family history: Prostate cancer in brother, father had heart disease with requirement of cardiac device Social history: Lives in [place] with daughter (next of kin). Ex ethanol abuse (six pack daily) stopped in 2019. Denies current tobacco, alcohol and other drug abuse Allergies: Codeine and oxybutynin Home medication: Percocet, Eliquis 2.5 mg p.o. b.i.d., tamsulosin, finasteride, lisinopril, atorvastatin, metoprolol, pantoprazole, melatonin, olanzapine Patient seen and examined at bedside. Currently has no new complaints. Planning on transfusion of 1 unit of PRBCs. Patient educated on continue with blood thinners (apixaban) due to DVT and requirement of monthly transfusion versus high-risk of PE, patient prefers continue with low-dose apixaban at this time. Have also discussed goals of care, he is a modified DNR DNI (yes to ACLS/vasopressor medication and noninvasive ventilation, no to chest compressions, defibrillation and intubation). Objective vital signs Vital Sign Date Time Temp Pulse Resp B/P (MAP) Pulse Ox O2 Delivery O2 Flow Rate FiO2 07/08/24 07:00 98.9 89 39 136/44 (74) 92 98.9 07/08/24 05:16 Nasal Cannula* 4 36 Total Intake and Output 07/07/24 07/07/24 07/08/24 15:00 23:00 07:00 Intake Total 1325.0 ml Balance 1325.0 ml medications Current Medications Medications Dose Ordered Sig/Darrion Route Start Time Stop Time Status Last Admin Dose Admin Sodium Chloride 10 ml Q8HR IV 07/08/24 06:00 07/08/24 06:07 10 ML Ondansetron HCl 4 mg Q4HP PRN IV 07/08/24 01:15 Nitroglycerin 0.4 mg Q5MINP PRN SL 07/08/24 01:15 Morphine Sulfate 2 mg Q30M PRN IV 07/08/24 01:15 Morphine Sulfate 1 mg Q4HP PRN IV 07/08/24 02:15 Pantoprazole Sodium 40 mg DAILY IV 07/08/24 10:00 Hydralazine HCl 10 mg Q6HP PRN IV 07/08/24 02:15 Tamsulosin HCl 0.4 mg QPM PO 07/08/24 18:00 Norepinephrine Bitartrate 250 ml @ 3.75 mls/hr Q24H IV 07/08/24 02:30 07/08/24 02:39 3.75 MLS/HR Cefepime HCl 50 ml @ 12.5 mls/hr Q12HR IV 07/08/24 10:00 Vancomycin HCl 0 ml @ 0 mls/hr UD IV 07/08/24 03:00 UNV Examination Patient lying in bed, in no acute distress General: Lucid, afebrile, mucosae are dry, pale conjunctivae Cardiovascular: Normal S1 and S2. Holosystolic murmur best heard in left lower sternal border intensity 3/6. No gallops or rubs Respiratory: Normal ventilation mechanics. Clear lung sounds on auscultation Abdomen: Soft, nontender, no organomegaly, normal bowel sounds. Presents inguinal hernia on left groin (palpable crepitus) MSK/skin: Mobilizes 4 limbs. Skin is dry and warm. Right lower limb pitting edema, asymmetrical with right limb Neurological: Oriented in 3 spheres. No motor no sensitive deficits. Pupils are isocoric and reactive laboratory and microbiology Laboratory Tests 07/08/24 02:50 07/07/24 21:56 Test 07/07/24 21:56 Range/Units Serum Glucose 173 H 74-106 mg/dL Problem List/Assessment/Plan Problem List/Assessment/Plan Neurology X Cardiovascular # Non affiliated arrhythmia status post permanent pacemaker placement # Deep venous thrombosis on right popliteal vein - currently on p.o. apixaban Hypertension Respiratory # Acute respiratory failure # Community-acquired pneumonia Gram-positive/Gram-negative # Pulmonary fibrosis Currently on oxygen therapy with nasal cannula 2 L/min Under empiric IV antibiotic (vancomycin and Meropenem, previously on cefepime) Optimize bronchodilators Completed abdomen and pelvis CT: No acute abdominal or pelvic findings, right lower lobe pneumonia, diffuse sclerotic metastases Gastrointestinal # Left inguinal hernia # GERD Completed abdomen and pelvis CT: No acute abdominal or pelvic findings, right lower lobe pneumonia, diffuse sclerotic metastases Currently under IV pantoprazole Genitourinary # Benign prostatic hyperplasia # Prostate cancer with bone metastasis - No chemotherapy due to patients decision Patient currently on tamsulosin and finasteride. We will hold due to hypotension. Patient is not completed any chemotherapy or radiotherapy due to prostate cancer. He is a modified DNR DNI Infectious Disease # Mixed shock (hypovolemic and septic shock secondary to pneumonia) # Community-acquired pneumonia Gram-positive/Gram-negative Evidence in abdomen and pelvis CT Under empiric IV antibiotic (vancomycin and Meropenem, previously on cefepime). Continue with oxygen therapy Currently on norepinephrine 6 mcg/minute Endocrine # Dyslipidemia Continue atorvastatin Hematology # Mixed shock (hypovolemic and septic shock secondary to pneumonia) # Leukemia # Lymphoma reaction # Severe Macrocytic anemia # Rule out GI bleed Presented acute myeloid leukemia on October 2023, decided no chemotherapy Ordered anemia workup (this includes stool occult blood, ferritin, iron, etc.) Ordered one PRBC. Currently on norepinephrine 6 mcg/minute Currently patient is NPO until GI bleed is ruled out Completed abdomen and pelvis CT: No acute abdominal or pelvic findings, right lower lobe pneumonia, diffuse sclerotic metastases Psychiatric # History of ethanol abuse # Depression Continue olanzapine Monitor Nutrition: NPO due to anemia (rule out GI bleed) Prophylaxis: PUD (pantoprazole) and DVT (SCDs, was on apixaban low dose 2.5 mg p.o. b.i.d. at home) Lines: 07/08/2024 right femoral central line Nasal cannula at 2 L/min Drips: Norepinephrine 6 micrograms/minute Goals of care discussed with patient and family for over 26 minutes: he is a modified DNR DNI (yes to ACLS/vasopressor medication and noninvasive ventilation, no to chest compressions, defibrillation and intubation). Discussed plan with Dr. Marquez, patient, family and nurses: Currently under empiric IV antibiotics, oxygen therapy, bronchodilators and IV vasopressors. Planning on transfusion of 1 unit of PRBCs. Discontinue Apixaban at this time due to anemia, patient says that he perfers continuing with monthly transfusions than having a PE. Patient has poor prognosis. Patient and family understand. critical care time excluding procedures was 82 mins Plan discussed with: Patient, Daughter, Other (Nurses) My Orders My Orders Orders - ASHLEY ACOSTA Procedure Category Date Status Time Iron Panel LAB 07/08/24 Logged 07:02 Ferritin LAB 07/08/24 Logged 07:02 Lactate Dehydrogenase LAB 07/08/24 In Process 07:02 Vitamin B12 LAB 07/08/24 Logged 07:02 Folate (Folic Acid) LAB 07/08/24 Logged 07:02 Stool Occult Blood LAB 07/08/24 Logged 07:02 Date of Service: July 08, 2024 Billing Provider: HILARIO MARQUEZ MD Common Visit Codes: 23779-[id number] CARE 30-74 MIN, [id number] CARE-EACH +30MIN ASHLEY ACOSTA July 08, 2024 07:57 HILARIO MARQUEZ MD July 09, 2024 15:59
--- NOTE | 2024-07-08 08:40 | DVH ---
Bilateral lower extremity venous duplex Clinical History: b/l leg swelling Comparison: None Findings: Duplex Doppler evaluation of the deep venous systems of both lower extremities from the common femora l veins to the popliteal veins including color Doppler and spectral/pulsed waveform analysis was perf ormed. RIGHT SIDE: The common femoral vein demonstrates appropriate compressibility and waveform variability. There is compressibility/patency of the great saphenous vein at the proximal thigh. The femoral vein demonstrates appropriate compressibility and waveform variability. The deep femoral vein demonstrates appropriate compressibility and waveform variability. The popliteal vein demonstrates appropriate compressibility and waveform variability. There is normal compressibility at the tibioperoneal trunk. LEFT SIDE: The common femoral vein demonstrates appropriate compressibility and waveform variability. There is compressibility/patency of the great saphenous vein at the proximal thigh. The femoral vein demonstrates appropriate compressibility and waveform variability. The deep femoral vein demonstrates appropriate compressibility and waveform variability. The popliteal vein demonstrates appropriate compressibility and waveform variability. There is normal compressibility at the tibioperoneal trunk. IMPRESSION: No right or left femoropopliteal venous thrombosis. If clinical concern/symptoms persist or worsen, short-interval follow-up study is suggested. END IMPRESSION:
[2024-07-08 08:53] LABS: % Iron Saturation 23.2 % (20-55)
[2024-07-08 09:31] LABS: Ferritin 8578.2 ng/mL (22-322)
[2024-07-08 09:33] LABS: Folate (Folic Acid) 5.37 ng/mL (>5.38)
[2024-07-08 09:55] LABS: Phosphorus 2.8 mg/dL (2.4-5.1)
[2024-07-08 09:56] LABS: Magnesium 1.4 mg/dL (1.6-2.6)
[2024-07-08] MEDS ORDERED: FUROSEMIDE 40 MG TAB PO SCH (10:00)
[2024-07-08] MEDS: PANTOPRAZOLE 40 MG/10 ML VIAL INJ IV SCH (10:33)
[2024-07-08] MEDS: CEFEPIME 1GM/ 50ML 50 ML IV SCH (10:33)
[2024-07-08] MEDS: MORPHINE SULFATE INJ 2 MG/ml SYRG IV PRN ×2 (10:36→22:20)
--- NOTE | 2024-07-08 12:22 | ECG ---
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
[2024-07-08] MEDS: FUROSEMIDE 40 MG/4 ML VIAL IV ONE (12:58)
[2024-07-08 13:03] LABS: Base Excess -18.3 mmol/L (-2.0-3.0)
--- NOTE | 2024-07-08 13:11 | DVH ---
EXAM: XY CHEST XRAY 1 VIEW HISTORY: SOB COMPARISON: XY CHEST XRAY 1 VIEW on DOS: 07/07/24, XY CHEST XRAY 1 VIEW on DOS: 12/23/22, XY CHEST PORT ABLE on DOS: 12/19/22, XY CHEST PORTABLE on DOS: 12/15/22, upper images of CT scan of the abdomen ashley ed 07/08/2024. TECHNIQUE: Portable supine AP view of the chest was performed. FINDINGS: Right lower lobe infiltrate is better characterized on prior CT scan. No pneumothorax or pulmonary ed loretta. The heart is enlarged. Left chest pacemaker is re-identified. The aortic arch is calcific. IMPRESSION: 1. Right lower lobe pneumonia. 2. Cardiomegaly and left chest pacemaker.
[2024-07-08 13:43] LABS: INR 2.26 (0.9-1.15); Partial Thromboplastin Time 54.7 SEC (24.5-34.5); Prothrombin Time 22.1 sec (9.3-11.8)
[2024-07-08] MEDS: VANCOMYCIN 750MG KIT 100 ML IV SCH (14:01)
[2024-07-08] MEDS: MEROPENEM 1GM IVPB 50 ML IV ONE (15:26)
[2024-07-08] MEDS: SODIUM BICARB 8.4% 50Meq/50ml SYR Vial IV ONE ×3 (15:27→23:24)
[2024-07-08] MEDS: ONDANSETRON HCL 4 MG/2 ML VIAL IV PRN (16:11)
[2024-07-08] MEDS: TAMSULOSIN HYDROCHLORIDE 0.4 MG CAP PO SCH (17:00)
[2024-07-08 21:35] LABS: Base Excess -21.6 mmol/L (-2.0-3.0)
[2024-07-08 21:39] LABS: Platelet Count (auto) 123 10^3/uL (140-450)
[2024-07-08 21:42] LABS: Hematocrit 26.7 % (41.0-53.0); Mean Corpuscular Hemoglobin 31.8 pg (28.0-32.0); Mean Corpuscular Volume 105.9 fL (80.0-100.0); Red Blood Cells 2.53 10^6/uL (4.5-5.90)
[2024-07-08 21:45] LABS: Anion Gap 23.00001 (5-15); Chloride 101 mmol/L (98-107); Potassium 4.6 mmol/L (3.5-5.1)
[2024-07-08 21:51] LABS: BUN/Creatinine Ratio 10.3 (10.0-20.0); Blood Urea Nitrogen 21 mg/dL (9-23)
[2024-07-08 21:56] LABS: Red Cell Distribution Width 27.7 % (11.8-14.3)
[2024-07-08 21:59] LABS: Basophils % (manual) 0 (0.0-2.0); Eosinophils % (manual) 0 (0-7); Reactive Lymphocytes 0
[2024-07-08] MEDS: MAGNESIUM SULFATE 1GM/100ML 100 ML IV SCH (22:05)
[2024-07-08] MEDS: MEROPENEM 1GM IVPB 50 ML IV SCH (22:09)
[2024-07-08 22:10] LABS: Calcium 8.7 mg/dL (8.7-10.4); Sodium 134 mmol/L (136-145)
[2024-07-08 22:13] LABS: Carbon Dioxide < 10 mmol/L (20-31); Glucose 20 mg/dL (74-106)
[2024-07-08 22:24] LABS: Lymphocytes % (manual) 10 (10.0-50.0)
[2024-07-08 22:25] LABS: Band Neutrophils % (manual) 12; Metamyelocytes % 5
[2024-07-08 22:26] LABS: Myelocytes % 2; Promyelocytes % 2
[2024-07-08 22:27] LABS: Monocytes % (manual) 10 (0-12)
[2024-07-08 22:28] LABS: Platelet Estimate Decreased
[2024-07-08 22:29] LABS: Blast Cells 29
[2024-07-08 22:30] LABS: Macrocytosis Moderate
[2024-07-08 22:31] LABS: Anisocytosis Moderate
[2024-07-08 22:32] LABS: Tear Drop Cells FEW
[2024-07-08] MEDS: DEXTROSE 50% SYRINGE 50 ML IV ONE (22:38)
[2024-07-08] MEDS: DEXTROSE (50%) 50ML SYRG IV ONE (22:39)
[2024-07-08] MEDS: SODIUM BICARB 50mEq/50ml Vial 150 ML in SOD CHL 0.45% 1,000 ML IV SCH (23:24)
[2024-07-09] VITALS (91 sets, daily range): BP systolic 83–136; BP diastolic 31–88; PULSE 52–120; RESP 19–33; TEMP 94.5–100; O2SAT 75–100
[2024-07-09] MEDS: InsuLIN REG 1unit/0.01ml Soln (100units/ml) SC SCH (00:30)
[2024-07-09] MEDS: ACCU-CHEK COMFORT CURVE STRIP VI SCH (00:30)
[2024-07-09 01:18] LABS: Base Excess -21.6 mmol/L (-2.0-3.0)
[2024-07-09] MEDS ORDERED: ENOXAPARIN SOD 40 MG/0.4 ML SYRINGE SC SCH (02:00)
[2024-07-09] MEDS: LORazepam 2MG/ML-1ML VIAL IV ONE (03:17)
[2024-07-09] MEDS: DEXTROSE (50%) 50ML SYRG IV PRN (03:39)
[2024-07-09] MEDS: SODIUM BICARB 50mEq/50ml Vial 150 ML in D5W 5% 1,000 ML IV SCH (04:16)
[2024-07-09] MEDS: SODIUM BICARB 8.4% 50Meq/50ml SYR Vial IV ONE (04:18)
[2024-07-09 05:19] LABS: Hematocrit 25.9 % (41.0-53.0); Hemoglobin 7.8 g/dL (13.5-17.5); Mean Corpuscular Hgb Conc. 29.9 g/dL (32.0-36.0); Platelet Count (auto) 118 10^3/uL (140-450); Red Blood Cells 2.43 10^6/uL (4.5-5.90)
[2024-07-09 05:29] LABS: Anion Gap 25.00001 (5-15); BUN/Creatinine Ratio 9.8 (10.0-20.0); Blood Urea Nitrogen 23 mg/dL (9-23); Chloride 99 mmol/L (98-107); Glucose 86 mg/dL (74-106); Magnesium 2.6 mg/dL (1.6-2.6); Total Protein 6.7 g/dL (5.7-8.2); White Blood Cell 96.3 10^3/uL (4.4-10.8)
[2024-07-09 05:31] LABS: Base Excess -20.5 mmol/L (-2.0-3.0)
[2024-07-09 05:31] LABS: Band Neutrophils % (manual) 0; Basophils % (manual) 0 (0.0-2.0); Eosinophils % (manual) 0 (0-7); Metamyelocytes % 0; Myelocytes % 0; Promyelocytes % 0; Reactive Lymphocytes 0
[2024-07-09 05:38] LABS: Lactic Acid w/Reflex > 15.5 mmol/L (0.4-2.0)
[2024-07-09 05:40] LABS: Alanine Aminotransferase 227 U/L (7-40); Albumin 3.1 g/dL (3.2-4.8); Alkaline Phosphatase 183 U/L (46-116); Aspartate Aminotransferase 718 U/L (13-40); Bilirubin, Total 2.2 mg/dL (0.2-1.0); Calcium 8.5 mg/dL (8.7-10.4); Carbon Dioxide < 10 mmol/L (20-31); Phosphorus 7.8 mg/dL (2.4-5.1); Sodium 134 mmol/L (136-145)
[2024-07-09] MEDS: MORPHINE SULFATE INJ 2 MG/ml SYRG IV PRN (06:08)
[2024-07-09 06:09] LABS: Anisocytosis Moderate; Blast Cells 23; Lymphocytes % (manual) 2 (10.0-50.0); Macrocytosis Moderate; Monocytes % (manual) 53 (0-12); Platelet Estimate Decreased; Polychromasia Slight; Tear Drop Cells FEW
[2024-07-09 06:31] LABS: INR 3.8 (0.9-1.15); Partial Thromboplastin Time 65.4 SEC (24.5-34.5); Prothrombin Time 35.3 sec (9.3-11.8)
[2024-07-09] MEDS: LORazepam 2MG/ML-1ML VIAL IV PRN (11:25)
--- NOTE | 2024-07-09 17:13 | DVHDSRES ---
Discharge Summary Date of Admission Resident Creating Document: ASHLEY ACOSTA RESIDENT July 08, 2024 at 01:11 Date of Discharge: July 09, 2024 Labs/Diagnostic Data: Laboratory Results Test 07/09/24 16:07 07/09/24 07:10 07/09/24 05:22 07/09/24 05:00 POC Glucose 69 mg/dl (70-106) Lactic Acid Level 17.3 mmol/L (0.4-2.0) Blood Gas Specimen Type Arterial Blood Gas Sample Site Right radial Blood Gas Patient Temperature 37.0 Arterial Blood Date Drawn [id number] Arterial Blood pH 7.116 (7.350-7.450) Arterial Blood Partial Pressure CO2 22.8 mmHg (35.0-48.0) Arterial Blood Partial Pressure O2 76.6 mmHg (83.0-108.0) Arterial Blood HCO3 7.2 mmol/L (21.0-28.0) Arterial Blood Oxygen Saturation 91.5 % (94.0-98.0) Arterial Blood Base Excess -20.5 mmol/L (-2.0-3.0) Arterial Blood Oxyhemoglobin 90.4 % (94.0-98.0) Arterial Blood Carboxyhemoglobin 0.3 % (0.5-1.5) Arterial Blood Methemoglobin 0.9 % (0.0-1.5) Jacobo Test Yes Blood Gas Total Hemoglobin 8.40 g/dL (13.5-17.5) Blood Gas Liter Flow 4.00 Blood Gas Modality Nasal cannula FiO2 % 36.0 Blood Gas Critical Value Read Back Yes Blood Gas Notified Whom Harish reina. Blood Gas Notified Time [id number] Blood Gas Notified By Quentin aguila White Blood Count 96.3 10^3/uL (4.4-10.8) Red Blood Count 2.43 10^6/uL (4.5-5.90) Hemoglobin 7.8 g/dL (13.5-17.5) Hematocrit 25.9 % (41.0-53.0) Mean Corpuscular Volume 107.0 fL (80.0-100.0) Mean Corpuscular Hemoglobin 32.0 pg (28.0-32.0) Mean Corpuscular Hemoglobin Concent 29.9 g/dL (32.0-36.0) Red Cell Distribution Width 28.0 % (11.8-14.3) Platelet Count 118 10^3/uL (140-450) Mean Platelet Volume 9.3 fL (6.9-10.8) Neutrophils (%) (Auto) % (37.0-80.0) Lymphocytes (%) (Auto) % (10.0-50.0) Monocytes (%) (Auto) % (0.0-12.0) Basophils (%) (Auto) % (0.0-2.0) Neutrophils # (Auto) 10 ^3/uL (1.6-8.6) Lymphocytes # (Auto) 10 ^3/uL (0.4-5.4) Monocytes # (Auto) 10 ^3/uL (0-1.3) Differential Total Cells Counted 100.0 (100) Neutrophils % (Manual) 22 (37.0-80.0) Band Neutrophils % (Manual) 0 Lymphocytes % (Manual) 2 (10.0-50.0) Monocytes % (Manual) 53 (0-12) Eosinophils % (Manual) 0 (0-7) Basophils % (Manual) 0 (0.0-2.0) Metamyelocytes % (manual) 0 Myelocytes % (Manual) 0 Promyelocytes % (Manual) 0 Blast Cells % (Manual) 23 Reactive Lymphocytes 0 Platelet Estimate Decreased Polychromasia Slight Anisocytosis (manual) Moderate Macrocytosis Moderate Tear Drop Cells Few Prothrombin Time 35.3 sec (9.3-11.8) Prothrombin Time INR 3.80 (0.9-1.15) Activated Partial Thromboplast Time 65.4 SEC (24.5-34.5) Sodium Level 134 mmol/L (136-145) Potassium Level 5.0 mmol/L (3.5-5.1) Chloride Level 99 mmol/L (98-107) Carbon Dioxide Level < 10 mmol/L (20-31) Anion Gap 25.02416 (5-15) Blood Urea Nitrogen 23 mg/dL (9-23) Creatinine 2.34 mg/dL (0.700-1.30) Glomerular Filtration Rate Calc 28 mL/min (>90) BUN/Creatinine Ratio 9.8 (10.0-20.0) Serum Glucose 86 mg/dL (74-106) Calcium Level 8.5 mg/dL (8.7-10.4) Phosphorus Level 7.8 mg/dL (2.4-5.1) Magnesium Level 2.6 mg/dL (1.6-2.6) Total Bilirubin 2.2 mg/dL (0.2-1.0) Aspartate Amino Transferase (AST) 718 U/L (13-40) Alanine Aminotransferase (ALT) 227 U/L (7-40) Alkaline Phosphatase 183 U/L (46-116) Total Protein 6.7 g/dL (5.7-8.2) Albumin 3.1 g/dL (3.2-4.8) Test 07/08/24 21:21 07/08/24 12:50 07/08/24 08:08 07/08/24 02:50 Nucleated Red Blood Cells 6.0 % Blood Gas Spontaneous Rate 28 Hemoglobin A1c 6.1 % A1C (<5.7) Iron Level 51 ug/dL (65-175) Total Iron Binding Capacity 220 ug/dL (250-425) Percent Iron Saturation 23.2 % (20-55) Ferritin 8578.2 ng/mL (22-322) Vitamin B12 Level 2891 pg/mL (211-911) Vitamin D 25-Hydroxy 60.5 ng/mL (30.0-100) Folic Acid 5.37 ng/mL (>5.38) Thyroid Stimulating Hormone (TSH) 0.78 uIU/mL (0.55-4.78) Louis Rods Reticulocyte Count (auto) 2.93 % (0.5-1.5) Lactate Dehydrogenase 403 U/L (120-246) Test 07/08/24 00:15 07/07/24 22:10 07/07/24 21:56 Urine Color Dark-yellow (Yellow) Urine Clarity Clear (Clear) Urine pH 5.5 (5.0-9.0) Urine Specific [place] 1.026 (1.001-1.035) Urine Protein 1+ (Negative) Urine Ketones Trace (Negative) Urine Blood 1+ /uL (Negative) Urine Nitrite Negative (Negative) Urine Bilirubin Negative (Negative) Urine Urobilinogen Normal mg/dL (Negative) Urine Leukocyte Esterase Negative /uL (Negative) Urine RBC 6 /hpf (0 - 3) Urine Microscopic WBC 4 /HPF (0-3) Urine Squamous Epithelial Cells None seen /hpf (<5) Urine Bacteria Few /hpf (None Seen) Urine Hyaline Casts Few /lpf (0 - 2) Urine Mucus Few (None Seen) Urine Glucose Normal mg/dL (Normal) Influenza Type A Antigen Negative (Negative) Influenza Type B Antigen Negative (Negative) SARS-CoV-2 Antigen (Rapid) Negative (NEGATIVE) Lipase 34 U/L (12-53) Other Laboratory Tests 07/09/24 05:00 Brief Hx & Hospital Course: Geraldo Rosenberg this is a 79-year-old male patient who presents to ED with chief complaint of progressive dyspnea from functional class II to functional class IV for the past three days before his admission associated with generalized weakness, generalized shakiness, nausea, dry heaves, constipation tenesmus and unintentional weight loss (approximately 15 lb in the last six months). Patient has diagnosis of leukemia and prostate cancer with metastases to bone who has decided no chemotherapy was reduced, goals of care we are modified DNR/DNI (yes to ACLS/vasopressor medication and noninvasive ventilation, no to chest compressions, defibrillation and intubation). Denies palpitation, syncope, chest pain, vomiting, diarrhea, bleeding, dysuria, sick contacts, recent travel and motor or sensory deficits. 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 Family history: Prostate cancer in brother, father had heart disease with requirement of cardiac device Social history: Lives in [place] with daughter (next of kin). Ex ethanol abuse (six pack daily) stopped in 2019. Denies current tobacco, alcohol and other drug abuse Allergies: Codeine and oxybutynin Home medication: Percocet, Eliquis 2.5 mg p.o. b.i.d., tamsulosin, finasteride, lisinopril, atorvastatin, metoprolol, pantoprazole, melatonin, olanzapine Brief hospital course: Acute respiratory failure secondary to pneumonia with bacteremia to Gram-negative rods associated with mixed shock (septic and hypovolemic) in patient with history of AML and waiting prostate cancer with bone metastases with no chemotherapy due to patient's choice, requiring on his admission empiric IV antibiotic (vancomycin, meropenem previously cefepime), IV fluids, oxygen therapy, 1 unit of red blood cells and IV vasopressors (norepinephrine). Completed abdomen and pelvis CT which showed no acute abdominal or pelvic findings, right lower lobe pneumonia and diffuse sclerotic metastases. Patient did not have favorble response to medical management, patient's Goals of care is do not resuscitate and [id number], discussed with patient and family, deciding discharge to home hospice. Patient hemodynamically unstable (currently we will as on norepinephrine), somnolent, on comfort measures operating, in condition to be discharged to home hospice. Was granted under optimal comfort measure medication. Management per hospice service DIAGNOSIS # Acute respiratory failure secondary to Gram-negative pneumonia # Bacteremia to Gram-negative # Mixed shock (hypovolemic and septic shock secondary to pneumonia) # Non affiliated arrhythmia status post permanent pacemaker placement # Deep venous thrombosis on right popliteal vein - currently on p.o. apixaban # Community-acquired pneumonia Gram-negative # Pulmonary fibrosis # Left inguinal hernia # GERD # Benign prostatic hyperplasia # Prostate cancer with bone metastasis - No chemotherapy due to patients decision # Community-acquired pneumonia Gram-positive/Gram-negative # Dyslipidemia # Leukemia (AML) - no chemotherapy due to patient's cessation # Lymphoma reaction # Severe Macrocytic anemia # Rule out GI bleed # History of ethanol abuse # Depression Goals of care discussed with patient and family for over 26 minutes: DNR/DNI. Comfort measures Discussed plan with Dr. Hernandez, patient, family and nurses Time spent on discharge planning which included time with nurses, family and paperwork of only 76 minutes Examination Patient lying in bed, in no acute distress General: Somnolent, afebrile, mucosae are dry, pale conjunctivae Cardiovascular: Normal S1 and S2. Holosystolic murmur best heard in left lower sternal border intensity 3/6. No gallops or rubs Respiratory: Normal ventilation mechanics. Rhonchus on bilateral base. Currently on non rebreather mask Abdomen: Soft, nontender, no organomegaly, normal bowel sounds. Presents inguinal hernia on left groin (palpable crepitus) MSK/skin: Mobilizes 4 limbs. Skin is dry and warm. Right lower limb pitting edema, asymmetrical with right limb Neurological: Orientation cannot be evaluated No motor no sensitive deficits. Pupils are isocoric and reactive Operations or Procedures CHEST RADIOGRAPH Indication: Suspected Sepsis Technique: Single frontal view of the chest was obtained Comparison: XY CHEST XRAY 1 VIEW on DOS: 12/23/22, XY CHEST PORTABLE on DOS: 12/19/22, XY CHEST PORTABLE on DOS: 12/15/22 FINDINGS: Lines and Tubes: Dual-chamber pacemaker impella Butch with pulse generator over the left chest Lungs: Airspace disease or less atelectasis in the right base Pleura: No effusion. No pneumothorax. Cardiomediastinal contours: Unremarkable Bones: No acute osseous abnormality. IMPRESSION: 1. Airspace disease or atelectasis in right base ATED BY: LUCIE PARADA Jr. DO DICTATED DATE/TIME: 07/07/242224 Exam: CT CT AB PEL WITH IV CON ONLY History: Abdominal pain, fever, leukocytosis Comparison Study: None Technique: Multidetector spiral CT of the abdomen was performed from lung bases to pubic symphysis. Imaging was performed without IV contrast. Axial, coronal and sagittal multiplanar reformats were obtained from the axial data set by the technologist. Radiation Dose : 1. Abdomen/Pelvis: CTDIvol 11.36 mGy, DLP 646.4 mGy*cm. Findings: Evaluation of solid organs is limited due to lack of intravenous contrast use. Lung Bases: There is airspace consolidation in the right lower lobe consistent with pneumonia. No pleural or pericardial effusion. Moderate cardiomegaly. Coronary artery calcifications. Pacemaker noted. Liver: Liver is normal in size. No focal lesions noted. Gallbladder and Biliary Tree: No abnormality demonstrated. Spleen: No abnormality demonstrated. Pancreas: No abnormality demonstrated. Adrenal Glands: No abnormality demonstrated. Kidneys: No abnormality demonstrated. Bladder: Non distended. Bowel: Stomach appears grossly unremarkable. No abnormally dilated or thick- walled loops of large or small bowel noted. Appendix appears unremarkable. Ascites: Absent Lymphadenopathy: No evidence of lymphadenopathy. Abdominal Wall and Mesentery: Fat containing bilateral inguinal hernias larger on the left side. Vasculature: Considerable calcific atherosclerotic changes in abdominal aorta and iliac arteries. Pelvic Organs: Unremarkable Musculoskeletal: Innumerable small sclerotic lesions noted diffusely throughout the visualized skeleton consistent with metastases most likely from prostate cancer. No evidence of fracture. IMPRESSION: No acute abdominal or pelvic findings. Right lower lobe pneumonia. Diffuse sclerotic metastases. Radiation optimization: All CT scans at this facility use at least one of these dose optimization techniques: automated exposure control mA and/or kV adjustment per patient size (includes targeted exams where dose is matched to clinical indication) or iterative reconstruction. ATED BY: SOREN DANIELLE MD DICTATED DATE/TIME: 07/08/24 0050 Bilateral lower extremity venous duplex Clinical History: b/l leg swelling Comparison: None Findings: Duplex Doppler evaluation of the deep venous systems of both lower extremities from the common femoral veins to the popliteal veins including color Doppler and spectral/pulsed waveform analysis was performed. RIGHT SIDE: The common femoral vein demonstrates appropriate compressibility and waveform variability. There is compressibility/patency of the great saphenous vein at the proximal thigh. The femoral vein demonstrates appropriate compressibility and waveform variability. The deep femoral vein demonstrates appropriate compressibility and waveform variability. The popliteal vein demonstrates appropriate compressibility and waveform variability. There is normal compressibility at the tibioperoneal trunk. LEFT SIDE: The common femoral vein demonstrates appropriate compressibility and waveform variability. There is compressibility/patency of the great saphenous vein at the proximal thigh. The femoral vein demonstrates appropriate compressibility and waveform variability. The deep femoral vein demonstrates appropriate compressibility and waveform variability. The popliteal vein demonstrates appropriate compressibility and waveform variability. There is normal compressibility at the tibioperoneal trunk. IMPRESSION: No right or left femoropopliteal venous thrombosis. If clinical concern/symptoms persist or worsen, short-interval follow-up study is suggested. END IMPRESSION: ATED BY: KATINA ORTIZ MD DICTATED DATE/TIME: 07/08/24 0837 EXAM: XY CHEST XRAY 1 VIEW HISTORY: SOB COMPARISON: XY CHEST XRAY 1 VIEW on DOS: 07/07/24, XY CHEST XRAY 1 VIEW on DOS: 12/23/22, XY CHEST PORTABLE on DOS: 12/19/22, XY CHEST PORTABLE on DOS: 12/15/22, upper images of CT scan of the abdomen dated 07/08/2024. TECHNIQUE: Portable supine AP view of the chest was performed. FINDINGS: Right lower lobe infiltrate is better characterized on prior CT scan. No pneumothorax or pulmonary edema. The heart is enlarged. Left chest pacemaker is re-identified. The aortic arch is calcific. IMPRESSION: 1. Right lower lobe pneumonia. 2. Cardiomegaly and left chest pacemaker. ATED BY: THELMA DAVIS MD DICTATED DATE/TIME: 07/08/24 1308 Condition at Discharge: Critical Final Diagnosis/Problems List # Acute respiratory failure secondary to Gram-negative pneumonia # Bacteremia to Gram-negative # Mixed shock (hypovolemic and septic shock secondary to pneumonia) # Non affiliated arrhythmia status post permanent pacemaker placement # Deep venous thrombosis on right popliteal vein - currently on p.o. apixaban # Community-acquired pneumonia Gram-negative # Pulmonary fibrosis # Left inguinal hernia # GERD # Benign prostatic hyperplasia # Prostate cancer with bone metastasis - No chemotherapy due to patients decision # Community-acquired pneumonia Gram-positive/Gram-negative # Dyslipidemia # Leukemia (AML) - no chemotherapy due to patient's cessation # Lymphoma reaction # Severe Macrocytic anemia # Rule out GI bleed # History of ethanol abuse # Depression Discharge Disposition: Hospice - Home SNF Discharge Will this Physician continue t: No Discharge Instruct/Medications Diet: See Comment Diet comment: Per Hospice service Activity: bedrest Follow Up/Referral: Per hospice Medications: Per hospice Discharge Statement: "Patient was advised to return to the ER or call 911 if any headaches, dizziness, shortness of breath, chest pain, abdominal pain, bleeding, fevers, or worsening of medical condition. Patient was counseled about treatment plan, medications, possible side effects, patientverbalized understanding. All questions were answered to the best of my ability. This discharge took greater then 30 minutes in planning, reviewing documentation, counseling the patient, and discussing with other team members." ASSESSMENT ASSESSMENT Assessment septic shock secondary to pneumonia, AML and prostate CA with bone metastasis ASHLEY ACOSTA RESIDENT July 09, 2024 17:13
--- NOTE | 2024-07-10 12:54 | DVHSR ---
APPROVED REPORT EXAM: Two-dimensional and M-mode echocardiogram with Doppler and color Doppler. Blood Pressure: 136/44 mmHg INDICATION Chest Pain RISK FACTORS Height: 5'6", Weight: 140 DIMENSIONS LVDd5.3 (3.8-5.7cm)LA (2D)5.1 (1.9-4.0cm)Aortic Root3.3 (2.0-3.7cm) LVDs3.2 (2.5-4.0cm)LA (MM) (1.9-4.0cm)Aortic Cusp Exc1.4 (1.5-2.0cm) EF (%) 68.0 (55-70%)Rt. Atrium6.7 (1.9-4.0cm)Asc. Aorta4.2 cm IVSd1.2 (0.7-1.1cm)RV (D)4.8 (1.8-2.4cm) PWd1.0 (0.7-1.1cm) Mitral Valve MitralMitral Stenosis E wave0.78m/sMV Mean GR.mmHg E/A ratio0.02D MVAcm2 Aortic Valve Aortic ValveAortic Stenosis V10.82m/Chan Mean GR.13mmHg V22.38m/Chan Peak GR.23mmHg LVOT Diameter2.2 (1.8-2.4cm)Doppler AVA1.31cm2 2D AVA2.46cm2 AI P 1/2 Kgee782.83ms Pulmonic Valve V20.74m/s Tricuspid Valve TR Velocity2.07m/s [id number] Conclusion lvef 30% moderate LVH RV enlarged, but decreased function severe tricupsid regurg mild mitral regurg left atrium enlarged
== END 2024-07-09 18:00 | disposition home or self-care (01) | DRG 871 ==
LOC: ER 21:28 → EDBD 21:28 → OVERFLOW 07-08 01:11
PROVIDERS: ADMIT Internal Medicine; ATTEND Internal Medicine
PROC: 30233N1 Transfusion of Nonautologous Red Blood Cells into Peripheral Vein, Percutaneous Approach (ICD-10-PCS; principal; 2024-07-08)
DX: A41.50 Gram-negative sepsis, unspecified (principal); J15.69 Pneumonia due to other Gram-negative bacteria; R65.21 Severe sepsis with septic shock; J96.00 Acute respiratory failure, unspecified whether with hypoxia or hypercapnia; J15.9 Unspecified bacterial pneumonia; C92.00 Acute myeloblastic leukemia, not having achieved remission; D61.818 Other pancytopenia; E87.20 Acidosis, unspecified; C79.51 Secondary malignant neoplasm of bone; K92.2 Gastrointestinal hemorrhage, unspecified; Z20.822 Contact with and (suspected) exposure to COVID-19; C61 Malignant neoplasm of prostate; N40.0 Benign prostatic hyperplasia without lower urinary tract symptoms; E78.5 Hyperlipidemia, unspecified; K21.9 Gastro-esophageal reflux disease without esophagitis; I10 Essential (primary) hypertension; I25.10 Atherosclerotic heart disease of native coronary artery without angina pectoris; K40.20 Bilateral inguinal hernia, without obstruction or gangrene, not specified as recurrent; H53.40 Unspecified visual field defects; I34.0 Nonrheumatic mitral (valve) insufficiency; J84.10 Pulmonary fibrosis, unspecified; I48.91 Unspecified atrial fibrillation; Z98.61 Coronary angioplasty status; F10.10 Alcohol abuse, uncomplicated; Z95.0 Presence of cardiac pacemaker; Z82.49 Family history of ischemic heart disease and other diseases of the circulatory system; Z51.5 Encounter for palliative care; Z79.899 Other long term (current) drug therapy
CPT/HCPCS: 36415; 36556; 36600; 71045; 74177; 80048; 80053; 81001; 82306; 82607; 82728; 82746; 82805; 82962; 83036; 83540; 83550; 83605; 83615; 83690; 83735; 84100; 84443; 85007; 85027; 85045; 85060; 85610; 85730; 86850; 86900; 86901; 86920; 87040; 87081; 87086; 87088; 87186; 87205; 87426; 87804; 93005; 93306; 93970; 99291; G0378; J2185; J2405; J2470